=== PATIENT | female | born 1955 | race Caucasian/White ===

== ENCOUNTER 2025-03-29 10:39 | Emergency (ER) | payer MEDICARE, SELFPAY ==
--- OUTSIDE RECORDS SUMMARY | 2025-01-29 10:50 | XMS_ITS | Encounter Summary ---
Author Organization [facility] Address [address] [place] [address] Care Team Providers Care Child Health Associate Name Role Phone Bhupinder Guzmán SHELLFISH SORTER Primary Care Provider +1- [phone] Encounter Details Date Type Department Care Team (Late st Contact Info) Description 01/29/2025 11:50 AM EDT Ancillary Procedure [facility] [address] [place] [address] Social History Tobacco Use Types Packs/Day Years Used Date Smoking Tobacco: Never Passive Smoke Exposure: Never Smokeless Tobacco: Never Comments Unknown Sex and Gender Information Value Date Recorded Sex Assigned at Not on file Legal Sex Female 8:57 PM EDT Gender Identity Not on file Sexual Orientation Not on file documented as of this encounter Plan of Treatment Upcoming Encounters Date Type Department Care Team (Late st Contact Info) Description 04/02/2025 3:15 PM EST Office Visit [facility] [address] [place] [address] Bright Jones MD [address] [address] Glaucoma suspect of both eyes (Primary Dx); Retinopathy of prematurity of both eyes; Other secondary cataract of both eyes documented as of this encounter Procedures Procedure Name Priority Date/Time Associated Diagnosis Comments SAMUELS VISUAL FIELD - OU - BOTH EYES Routine 01/29/2025 2:45 PM EDT Glaucoma suspect of both eyes Retinopathy of prematurity of both eyes documented in this encounter Results * Samuels Visual Field - OU - Both Eyes (01/29/2025 2:45 PM EDT) Anatomical Region Laterality Modality Head Visual Field Narrative 01/29/2025 2:45 PM EDT OD - Inferior changes. 1.16 . OS - Abnormally high sensitivity OS>OD us Bright Jones MD OPHTH VISUAL FIELD Final Res ult documented in this encounter Visit Diagnoses Not on filedocumented in this encounter Additional Health Concerns Assessment Noted Time A fall risk assessment has been complete d for the patient 04/02/2024 7:51 AM EST A Body Mass Index follow-up plan has been documented for the patient 01/29/2025 3:02 PM EDT documented as of this encounter Care Teams Child Health Associate Relationship Specialty Start Date End Date Bhupinder Guzmán APRN [address] [place] [address] PCP - General 03/18/23 documented as of this encounter
--- OUTSIDE RECORDS SUMMARY | 2025-01-29 12:30 | XMS_ITS | Encounter Summary ---
Author Organization [facility] Address [address] [place] [address] Care Team Providers Care Insurance Counsel Name Role Phone Bhupinder Guzmán HELEN Primary Care Provider +1- [phone] Reason for Referral * Imaging (Routine) - Pending Review Specialty Diagnoses / Procedures Referred By Mc overton Referred To Contact Ophthalmology Diagnoses Glaucoma suspect of both eyes Procedures Laser Trabeculoplasty Selective - OD - Right Eye Bright Jones MD [address] [address] Phone: tel: fax: Referral ID Status Reason Start Date Expiration Date V isits Requested Visits Authorized [id number] Pending Review 01/29/2025 07/31/2026 1 1 Encounter Details Date Type Department Care Team (Late st Contact Info) Description 01/29/2025 1:30 PM EDT Office Visit [facility] [address] [place] [address] Bright Jones MD [address] [address] Glaucoma suspect of both eyes (Primary Dx); Retinopathy of prematurity of both eyes Social History Tobacco Use Types Packs/Day Years Used Date Smoking Tobacco: Never Passive Smoke Exposure: Never Smokeless Tobacco: Never Tobacco Cessation:Counseling Given: Not Answered Comments Unknown Sex and Gender Information Value Date Recorded Sex Assigned at Not on file Legal Sex Female 8:57 PM EDT Gender Identity Not on file Sexual Orientation Not on file documented as of this encounter Miscellaneous Notes * Progress Notes - Bright Jones MD - 01/29/2025 1:30 PM EDT 1) 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 MD 1.16 . OS - Abnormally high sensitivity OS>OD. MD 11.63 - ORA 8.8/7.0 - IOP last visit 20 on Lprost and cosopt OU. Today on same today. No recent steroids. - Will do SLT OD today while she is here. Drove so will avoid bilateral SLTs today. 2) PCIOL BE: PCO RE - YCL RE 04/2024 3) ROP: born 2 lbs in 195! 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 RTC 2 weeks for SLT OS. Ultimately wants to follow in [place] Tobacco Use: Low Risk (04/02/2024) Patient History Smoking Tobacco Use: Never Smokeless Tobacco Use: Never Passive Exposure: Not on file Recent Concern: Tobacco Use - Medium Risk (02/15/2024) Received from [facility] Patient History Smoking Tobacco Use: Former Smokeless Tobacco Use: Never Passive Exposure: Current The patient has been counseled on tobacco cessation: Not Applicable documented in this encounter Plan of Treatment Upcoming Encounters Date Type Department Care Team (Late st Contact Info) Description 04/02/2025 3:15 PM EST Office Visit [facility] [address] [place] [address] Bright Jones MD [address] [address] Glaucoma suspect of both eyes (Primary Dx); Retinopathy of prematurity of both eyes; Other secondary cataract of both eyes documented as of this encounter Procedures Procedure Name Priority Date/Time Associated Diagnosis Comments LASER TRABECULOPLASTY SELECTIVE - OD - RIGHT EYE Routine 01/29/2025 3:02 PM EDT Glaucoma suspect of both eyes SAMUELS VISUAL FIELD - OU - BOTH EYES Routine 01/29/2025 2:45 PM EDT Glaucoma suspect of both eyes Retinopathy of prematurity of both eyes documented in this encounter Results * Laser Trabeculoplasty Selective - OD - Right Eye (01/29/2025 3:02 PM EDT) Anatomical Region Laterality Modality Head Laser Room Narrative 01/29/2025 3:02 PM EDT Time Out Confirmed correct patient, procedure, site, and patient consented. Anesthesia Topical anesthesia was used. Anesthesia medications included Alphagan 0.15%, Proparacaine. Laser Information Laser power was 1.1. Total spots was 115. Post-op The patient tolerated the procedure well. There were no complications. The patient received written and verbal post procedure care education. us Bright Jones MD OPH CLINIC PROCEDURES Shanna l Result * Samuels Visual Field - OU - Both Eyes (01/29/2025 2:45 PM EDT) Anatomical Region Laterality Modality Head Visual Field Narrative 01/29/2025 2:45 PM EDT OD - Inferior changes. 1.16 . 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
--- OUTSIDE RECORDS SUMMARY | 2025-02-12 14:00 | XMS_ITS | Encounter Summary ---
Author Organization [facility] Address [address] 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 MD 1.16 . OS - Abnormally high sensitivity OS>OD. MD 11.63 - ORA 8.8/7.0 - IOP last visit on Lprost and cosopt OU. Also using PF QID and IOP 38/22 today. Taper PF 3-2-1 over next week and add brimonidine OD in the meantime. - SLT OD 01/24 - SLT OS in future if not persistent IOP spike. 2) PCIOL BE: PCO RE - YCL RE 04/2024 3) ROP: born 2 lbs in 1953! 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 more stressed 01/2025 - Broke tooth on almond RTC next week IOP check Tobacco Use: Low Risk (01/29/2025) Patient History Smoking Tobacco Use: Never Smokeless Tobacco Use: Never Passive Exposure: Never The patient has been counseled on tobacco cessation: Not Applicable I saw and evaluated the patient with the resident/fellow. I discussed the case with the resident/fellow and agree with the findings and plan as documented. Bright Jones MD documented in this encounter Plan of Treatment Upcoming Encounters Date Type Department Care Team (Late st Contact Info) Description 04/02/2025 3:15 PM EST Office Visit [facility] [address] [place] [address] Bright Jones MD [address] [phone] Glaucoma suspect of both eyes (Primary Dx); Retinopathy of prematurity of both eyes; Other secondary cataract of both eyes documented as of this encounter Visit Diagnoses Diagnosis Glaucoma suspect of both eyes- Primary Unspecified preglaucoma Retinopathy of prematurity of both eyes Glaucoma suspect of both eyes- Primary Unspecified preglaucoma 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
--- OUTSIDE RECORDS SUMMARY | 2025-02-21 07:00 | XMS_ITS | Encounter Summary ---
Author Organization [facility] Address [address] [place] [address] Care Team Providers Care Scallop Cutter Name Role Phone Bhupinder Guzmán HELEN Primary Care Provider +1- [phone] Reason for Referral * Imaging (Routine) - Pending Review Specialty Diagnoses / Procedures Referred By Mc overton Referred To Contact Ophthalmology Diagnoses Retinopathy of prematurity of both eyes Glaucoma suspect of both eyes Procedures Laser Trabeculoplasty Selective - OS - Left Eye Bright Jones MD [address] [address] Phone: tel: fax: Referral ID Status Reason Start Date Expiration Date V isits Requested Visits Authorized [id number] Pending Review 02/21/2025 08/23/2026 1 1 Encounter Details Date Type Department Care Team (Late st Contact Info) Description 02/21/2025 8:00 AM EDT Office Visit [facility] [address] [place] [address] Bright Jones MD [address] [address] Retinopathy of prematurity of both eyes (Primary Dx); Glaucoma suspect of both eyes Social History Tobacco Use [...] Progress Notes - Bright Jones MD - 02/21/2025 8:00 AM EDT 1) 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 MD 1.16 . OS - Abnormally high sensitivity OS>OD. MD 11.63 - ORA 8.8/7.0 - IOP last visit still using PF after SLT OD. Tapered PF 3-2-1. IOP today on Lprost andcosopt OU, brimonidine BID OD. on Lprost and cosopt OU. - SLT OD 01/24 - Will do SLT OS today. Stop brimonidine for now. Close follow up to ensure no IOP spike 2) PCIOL BE: PCO RE - YCL RE 04/2024 3) ROP: born 2 lbs in 1955! 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 01/2025 - Broke tooth on almond 02/23 RTC 2 weeks IOP check Tobacco Use: Low Risk (02/21/2025) Patient History Smoking Tobacco Use: Never Smokeless [...] Description 04/02/2025 3:15 PM EST Office Visit [facility] [address] [place] [address] Bright Jones MD [address] [place] [phone] Glaucoma suspect of both eyes (Primary Dx); Retinopathy of prematurity of both eyes; Other secondary cataract of both eyes documented as of this encounter Procedures Procedure Name Priority Date/Time Associated Diagnosis Comments LASER TRABECULOPLASTY SELECTIVE - OS - LEFT EYE Routine 02/21/2025 8:47 AM EDT Retinopathy of prematurity of both eyes Glaucoma suspect of both eyes documented in this encounter Results * Laser Trabeculoplasty Selective - OS - Left Eye (02/21/2025 8:47 AM EDT) Anatomical Region Laterality Modality Head Laser Room Narrative 02/21/2025 8:47 AM EDT Time Out Confirmed correct patient, procedure, site, and patient consented. Anesthesia Topical anesthesia was used. Anesthesia medications included Alphagan 0.15%, Proparacaine. Laser Information Laser power was 0.9. Total spots was 100. Post-op The patient tolerated the procedure well. There were no complications. The patient received written and verbal post procedure care education. 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
--- OUTSIDE RECORDS SUMMARY | 2025-03-14 15:00 | XMS_ITS | Encounter Summary ---
Author Organization [facility] Address [address] [place] [address] Care Team Providers Care Fibreglass Gun Hand Name Role Phone Bhupinder Guzmán APRN Primary Care Provider +1- [phone] Encounter Details Date Type Department Care Team (Late st Contact Info) Description 03/14/2025 3:00 PM EST Office Visit [facility] [address] [place] [address] Bright Jones MD [address] [address] Retinopathy of prematurity of both eyes (Primary Dx); Glaucoma suspect of both eyes; Other secondary cataract of both eyes Social History Tobacco Use [...] Progress Notes - Bright Jones MD - 03/14/2025 3:00 PM EST 1) 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 MD 1.16 . OS - Abnormally high sensitivity OS>OD. MD 11.63 - ORA 8.8/7.0 - SLT OD 01/24 with IOP spike but stayed on steroid - SLT OS 02/23 - IOP today 18 on Lprost and cosopt OU. Will restart brimonidine OS for now. Hopefully similar course to OD where we get response in a few weeks. 2) PCIOL BE: PCO RE - YCL RE 04/2024 3) ROP: born 2 lbs in 1955! 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 more stressed 01/2025 - Broke tooth on almond 02/23 - Things much better at work 03/2025 RTC 3 weeks IOP check Tobacco Use: Low Risk [...] Description 04/02/2025 3:15 PM EST Office Visit [facility] [address] [place] [address] Bright Jones MD [address] [phone] Glaucoma suspect of both eyes (Primary Dx); Retinopathy of prematurity of both eyes; Other secondary cataract of both eyes documented as of this encounter Visit Diagnoses Diagnosis Retinopathy of prematurity of both eyes- Primary Glaucoma suspect of both eyes Unspecified preglaucoma Other secondary cataract of both eyes Glaucoma suspect of both eyes- Primary Unspecified preglaucoma 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
[2025-03-29 10:46] VITALS: BP 185/80; PULSE 76; RESP 18; TEMP 36.9; O2SAT 99; BMI 24.3
--- OUTSIDE RECORDS SUMMARY | 2025-03-29 10:56 | XMS_ITS | Clinical Summary ---
Author Organization [facility] Address [address] [place] [address] Care Team Providers Care Seed Tester Name Role Phone Bhupinder Guzmán HELEN Primary Care Provider [phone]- [phone] Allergies No known active allergies Medications aspirin 325 MG tablet Take 1 tablet (325 mg) by mouth 1 (one) time each day. Active atenolol (Tenormin) 100 MG tablet Take 1 tablet (100 mg) by mouth 1 (one) time each day. Active cyclobenzaprine (Flexeril) 5 MG tablet Take 1 tablet (5 mg) by mouth 1 (one) time each day. Active OneTouch Ultra test strip 2 Active Lancets (OneTouch Delica Plus [id number]) misc 2 Active losartan-hydroC HLOROthiazide (Hyzaar) 100-25 MG tablet Take 1 tablet by mouth 1 (one) time each day. Active metFORMIN (Glucophage) 500 MG tablet 2 Active naproxen sodium (Anaprox) 550 MG tablet Take 1 tablet by mouth every 12 (twelve) hours. 1 Active omeprazole (PriLOSEC) [address] capsule Take 1 capsule (20 mg) by mouth 1 (one) time each day. Active Mounjaro 5 MG/0.5ML solution auto-injector solution pen-injector Inject 5 mg every week by subcutaneous route. Active losartan (Cozaar) 100 MG tablet 100 mg by oral route. Active atorvastatin (Lipitor) 40 MG tablet 40 mg by oral route. 4 Active traMADol (Ultram) 50 MG tablet 50 mg by oral route. 4 Active latanoprost (Xalatan) 0.005 % ophthalmic solution INSTILL 1 DROP INTO BOTH EYES ONCE NIGHTLY 2.5 mL 11 4 Active dorzolamide-zane olol (Cosopt) 2-0.5 % ophthalmic solution INSTILL 1 DROP INTO THE AFFECTED EYE(S) EVERY 12 HOURS 10 mL 11 5 Active Additional Information Patient not taking.Reported on 03/14/2025 clopidogrel (Plavix) 75 MG tablet 5 Active nitroglycerin (Nitrostat) 0.4 MG SL tablet every 5 minutes as needed. 4 Active atenolol (Tenormin) 50 MG tablet Take 1 tablet by mouth daily. 5 Active Mounjaro 7.5 MG/0.5ML solution auto-injector solution pen-injector Inject 0.5 mL under the skin 1 time per week. 5 Active prednisoLONE acetate (Pred-Forte) 1 % ophthalmic suspension Administer 1 drop into the right eye 4 times a day. 15 mL 5 Active Additional Information Patient not taking.Reported on 03/14/2025 brimonidine 0.2 % OP ophthalmic solution Administer 1 drop into the right eye 2 times a day. 15 mL 3 5 Active Active Problems Problem Noted Date Diagnosed Date Glaucoma suspect of both eyes 01/29/2025 Retinopathy of prematurity of both eyes 01/23/20 25 Secondary cataract of both eyes 09/07/2021 Resolved Problems Problem Noted Date Diagnosed Date Resolved Date Suspected glaucoma of both eyes 09/07/2021 01/20/2025 Encounters Date Type Department Care Team Description 03/14/2025 3:00 PM EST Office Visit [facility] [address] [place] [address] Bright Jones MD Retinopathy of prematurity of both eyes (Primary Dx); Glaucoma suspect of both eyes; Other secondary cataract of both eyes 03/14/2025 Travel 02/21/2025 8:00 AM EDT Office Visit [facility] [address] [place] [address] Bright Jones MD Retinopathy of prematurity of both eyes (Primary Dx); Glaucoma suspect of both eyes 02/21/2025 Travel 02/12/2025 3:00 PM EDT Office Visit [facility] [address] [place] [address] Bright Jones MD Glaucoma suspect of both eyes (Primary Dx); Retinopathy of prematurity of both eyes 02/12/2025 Travel 01/29/2025 1:30 PM EDT Office Visit [facility] [address] [place] [address] Bright Jones MD Glaucoma suspect of both eyes (Primary Dx); Retinopathy of prematurity of both eyes 01/29/2025 11:50 AM EDT Ancillary Procedure [facility] [address] [place] [address] 01/29/2025 Travel 01/11/2025 Telephone [facility] [address] [place] [address] Jhon Ross MD from Last 3 Months Family History Medical History Relation Name Comments Cancer Brother Diabetes Brother Heart disease Brother Heart disease Father Diabetes Mother Heart disease Mother Heart disease Sister Relation Name Status Comments Brother Father Mother Sister Social History Tobacco Use Types Packs/Day Years Used Date Smoking Tobacco: Never Passive Smoke Exposure: Never Smokeless Tobacco: Never Tobacco Cessation:Counseling Given: Not Answered Comments Unknown Sex and Gender Information Value Date Recorded Sex Assigned at Not on file Legal Sex Female 8:57 PM EDT Gender Identity Not on file Sexual Orientation Not on file Plan of Treatment Upcoming Encounters Date Type Department Care Team (Late st Contact Info) Description 04/02/2025 3:15 PM EST Office Visit [facility] [address] [place] [address] Bright Jones MD [address] [address] Glaucoma suspect of both eyes (Primary Dx); Retinopathy of prematurity of both eyes; Other secondary cataract of both eyes Health Maintenance Due Date Last Done Comments [facility]-Bone Density Scan 1955 [facility]-Depression Screening 1955 [facility]-Hepatitis C Screening 1955 [facility]-Medicare Annual Wellness (AWV) 1955 [facility]-Infant/Child/Adol SDOH Screenings 1955 Diabetes: Dental Exam 09/04/1963 [facility]- SDOH Screenings 09/04/1971 [facility]-Adult SDOH Screenings 09/04/1971 CT Colonography 1998 Colonoscopy 1998 FIT-DNA 1998 FIT 1998 FOBT 1998 Sigmoidoscopy 1998 [facility]-Colorectal Cancer Screening 1998 [facility]-Breast Cancer Screening 09/04/2003 [facility]-Zoster Vaccines (2 of 2) 01/18/2020 11/23/2019 [facility]-Diabetes: Hemoglobin A1C 06/16/2021 12/17/2020 [id number] Vaccine (1 - 2024- season) 2024 [facility]-Influenza Vaccine (#1) 12/31/202402/11, 01/26/2022, 05/27/2021, Additional history exists [facility]-DTaP,Tdap,and Td Vaccines (2 - Td or Tdap) 03/19/2026 03/19/2016 [facility]-RSV Vaccine: 60+ Years or (1 - 1-dose 75+ series) 2028 [facility]-Pneumococcal Vaccine: 50+ Years Completed 02/15/2020, 01/25/2019 HPV Vaccines Aged Out No longer eligi ble based on patient's age to complete this topic [facility]-HIB Vaccines Aged Out No longer e ligible based on patient's age to complete this topic [facility]-Hepatitis A Vaccines Aged Out No longer eligible based on patient's age to complete this topic [facility]-IPV Vaccines Aged Out No longer e ligible based on patient's age to complete this topic [facility]-Rotavirus Vaccines Aged Out No lo nger eligible based on patient's age to complete this topic Procedures Procedure Name Priority Date/Time Associated Diagnosis Comments LASER TRABECULOPLASTY SELECTIVE - OS - LEFT EYE Routine 02/21/2025 8:47 AM EDT Retinopathy of prematurity of both eyes Glaucoma suspect of both eyes LASER TRABECULOPLASTY SELECTIVE - OD - RIGHT EYE Routine 01/29/2025 3:02 PM EDT Glaucoma suspect of both eyes SAMUELS VISUAL FIELD - OU - BOTH EYES Routine 01/29/2025 2:45 PM EDT Glaucoma suspect of both eyes Retinopathy of prematurity of both eyes from Last 3 Months Results * Laser Trabeculoplasty Selective - OS [...] procedure care education. us Bright Jones MD [facility] PROCEDURES Shanna l Result * Laser Trabeculoplasty Selective - OD - [...] 2:45 PM EDT OD - Inferior changes. MD 1.16 . OS - Abnormally high sensitivity OS>OD us Bright oJnes MD OPHTH VISUAL FIELD Final Res ult from Last 3 Months Insurance [employer]ARE Care Teams Seed Tester Relationship Specialty Start Date End Date Bhupinder Guzmán APRN [address] [place] [id number] PCP - General 03/18/23
--- OUTSIDE RECORDS SUMMARY | 2025-03-29 10:56 | XMS_ITS | Encounter Summary ---
Author Organization [facility] Address [address] [place] [address] Care Team Providers Care Fur Finisher Tailor Name Role Phone Bhupinder Guzmán HELEN Primary Care Provider [phone]- [phone] Encounter Details Date Type Department Care Team (Late st Contact Info) Description 01/11/2025 Telephone [facility] [address] [place] [address] Jhon Ross MD [address] [address] Social History Tobacco Use Types Packs/Day Years Used Date Smoking Tobacco: Never Smokeless Tobacco: Never Comments Unknown Sex and Gender Information Value Date Recorded Sex Assigned at Not on file Legal Sex Female 8:57 PM EDT Gender Identity Not on file Sexual Orientation Not on file documented as of this encounter Miscellaneous Notes * Telephone Encounter - Estephania Preciado - 01/11/2025 9:13 AM EDT Clinical Concern/Question Reason for Call: Patient is asking about scheduling a 6 mo follow up glaucoma check here in the [place] office Best contact number: [phone] Optimal time of day to reach caller: ANYTIME Additional comments/information from caller: Asking for a Tuesday around 3 in March Note: Please do not reply to this message. Follow-up communication and further actions as a result of this message need to be communicated with the patient directly, if the patient is not active onMyChart. If the patient is active on MyChart, they will receive notification of the communication/outcome via Ifbyphone. documented in this encounter Plan of Treatment Upcoming Encounters Date Type Department Care Team (Late st Contact Info) Description 04/02/2025 3:15 PM EST Office Visit [facility] [address] [facility] [place] [address] Bright Jones MD 110 [facility] [address] [place] [address] Glaucoma suspect of both eyes (Primary Dx); Retinopathy of prematurity of both eyes; Other secondary cataract of both eyes documented as of this encounter Visit Diagnoses Not on filedocumented in this encounter Additional Health Concerns Assessment Noted Time A fall risk assessment has been complete d for the patient 04/02/2024 7:51 AM EST A Body Mass Index follow-up plan has been documented for the patient 04/02/2024 8:12 AM EST documented as of this encounter Care Teams Fur Finisher Tailor Relationship Specialty Start Date End Date Bhupinder Guzmán APRN [address] [place] [address] PCP - General 03/18/23 documented as of this encounter
--- OUTSIDE RECORDS SUMMARY | 2025-03-29 10:56 | XMS_ITS | Continuity of Care Document ---
Author Organization [facility] Address [address] [place] [address] Care Team Providers Care Meat Products Demonstrator Name Role Phone VALARIE TOLEDO Referring Provider [phone] BHUPINDER PEREA Primary Care Provider Assessment No assessment recorded. Plan of Treatment Reminders Order Date Submit Date Provider Last Modified By Organization Details Last Modified Time Details Appointments None recorded. Lab vitamin D, 25-hydrox y, total, serum 025 025 JAE [facility], [address], Michael F, [place], [address], 5 12:09:46 HbA1c (hemoglob in A1c), blood 025 025 JAE [facility], [address], [place] [address], [place], [address], 5 12:09:46 microalbu min/creat inine, mass ratio, urine 025 025 JAE [facility], [address], [place] [address], [place], [address], 5 12:09:46 TSH + free T4, serum 025 025 JAE [facility], [address], [place] [address], [place], [address], 5 12:09:43 CMP, serum or plasma JAE [facility], [address], [place] [address], [place], [address], 5 12:09:44 lipid panel, serum JAE [facility], [address], [place], [place], [address], 5 12:09:45 CBC w/ auto diff JAE [facility], [address], [place], [place], [address], 5 12:09:44 Referral None recorded. Procedures None recorded. Surgeries None recorded. Imaging None recorded. Medication Orders None recorded. Patient TargetsNo targets recorded. Patient Instructions Encounter Date Encounter Id Patient Instructions Last Modified By Organization Details Last Modified Time 01/10/2025 [id number] body mass index: care instructions efryman Not available 01/10/2025 08:37:22 Reason for Referral None Reported. Results Created Date Observation Date Name Description Value Unit Range Abnormal Flag Note LastModifiedBy Organization Detail LastModifiedTime 01/11/2001/11/2025 TSH+F REE T4 TSH 4.600 uIU/m L 0.450- 4.500 above high normal Not Available [facility] ([facility]) [address] [place], [address], 01/11/2025 12:09:43 01/11/2001/11/2025 TSH+F REE T4 T4,free(dire ct) 1.20 NG/dL 0.82-1 .77 normal Not Available [facility] ([facility]) [address] [place], [address], 01/11/2025 12:09:43 01/11/2001/11/2025 CBC WITH DIFFE RENTI AL/PL ATELE T WBC 5.8 x10e3 /uL 3.4-10 .8 normal Not Available [facility] ([facility]) [address] [facility] [place], [address], 01/11/2025 12:09:44 01/11/2001/11/2025 CBC WITH DIFFE RENTI AL/PL ATELE T RBC 4.50 x10e6 /uL 3.77-5 .28 normal Not Available [facility] ([facility]) [address] [facility], [place], [address], 01/11/2025 12:09:44 01/11/2001/11/2025 CBC WITH DIFFE RENTI AL/PL ATELE T hemoglobin 14.1 g/dL 11.1-1 5.9 normal Not Available [facility] ([facility]) [address] [facility], [place], [address], 01/11/2025 12:09:44 01/11/2001/11/2025 CBC WITH DIFFE RENTI AL/PL ATELE T hematocrit 43.7 % 34.0-4 6.6 normal Not Available [facility] ([facility]) [address] [facility], [place], [address], 01/11/2025 12:09:44 01/11/2001/11/2025 CBC WITH DIFFE RENTI AL/PL ATELE T MCV 97 fL 79-97 normal Not Available [facility] ([facility]) [address] [facility], [place], [address], 01/11/2025 12:09:44 01/11/2001/11/2025 CBC WITH DIFFE RENTI AL/PL ATELE T MCH 31.3 pg 26.6-3 3.0 normal Not Available [facility] ([facility]) [address] [facility], [place], [address], 01/11/2025 12:09:44 01/11/20 25 01/11/2025 CBC WITH DIFFE RENTI AL/PL ATELE T MCHC 32.3 g/dL 31.5-3 5.7 normal Not Available [facility] ([facility]) [address] [facility], [place], [address], 01/11/2025 12:09:44 01/11/2001/11/2025 CBC WITH DIFFE RENTI AL/PL ATELE T RDW 12.4 % 11.7-1 5.4 Not Available [facility] ([facility]) [address] [facility], [place], [address], 01/11/2025 12:09:44 01/11/20 25 01/11/2025 CBC WITH DIFFE RENTI AL/PL ATELE T platelets 205 x10e3 /uL 150-45 0 normal Not Available [facility] ([facility]) [address] [facility], [place], [address], 01/11/2025 12:09:44 01/11/20 25 01/11/2025 CBC WITH DIFFE RENTI AL/PL ATELE T neutrophils 53 % not estab. normal Not Available [facility] ([facility]) [address] [facility], [place], [address], 01/11/2025 12:09:44 01/11/20 25 01/11/2025 CBC WITH DIFFE RENTI AL/PL ATELE T lymphs 33 % not estab. normal Not Available [facility] ([facility]) [address] [facility], [place], [address], 01/11/2025 12:09:44 01/11/20 25 01/11/2025 CBC WITH DIFFE RENTI AL/PL ATELE T monocytes 9 % not estab. normal Not Available [facility] ([facility]) [address] [facility], [place], [address], 01/11/2025 12:09:44 01/11/20 25 01/11/2025 CBC WITH DIFFE RENTI AL/PL ATELE T eos 4 % not estab. normal Not Available [facility] ([facility]) [address] [facility], [place], [address], 01/11/2025 12:09:44 01/11/20 25 01/11/2025 CBC WITH DIFFE RENTI AL/PL ATELE T basos 1 % not estab. normal Not Available [facility] ([facility]) [address] [place], [address], 01/11/2025 12:09:44 01/11/20 25 01/11/2025 CBC WITH DIFFE RENTI AL/PL ATELE T immature cells CLOTH HAULER Not Available [facility] ([facility]) [address] [place], [address], 01/11/2025 12:09:44 01/11/2001/11/2025 CBC WITH DIFFE RENTI AL/PL ATELE T neutrophils (absolute) 3.1 x10e3 /uL 1.4-7. 0 normal Not Available [facility] ([facility]) [address] [place], [address], 01/11/2025 12:09:44 01/11/20 25 01/11/2025 CBC WITH DIFFE RENTI AL/PL ATELE T lymphs (absolute) 1.9 x10e3 /uL 0.7-3. 1 normal Not Available [facility] ([facility]) [address] [place], [address], 01/11/2025 12:09:44 01/11/20 25 01/11/2025 CBC WITH DIFFE RENTI AL/PL ATELE T monocytes(ab solute) 0.5 x10e3 /uL 0.1-0. 9 normal Not Available [facility] ([facility]) [address] [place], [address], 01/11/2025 12:09:44 01/11/20 25 01/11/2025 CBC WITH DIFFE RENTI AL/PL ATELE T eos (absolute) 0.2 x10e3 /uL 0.0-0. 4 normal Not Available [facility] ([facility]) [address] [place], [address], 01/11/2025 12:09:44 01/11/20 25 01/11/2025 CBC WITH DIFFE RENTI AL/PL ATELE T baso (absolute) 0.1 x10e3 /uL 0.0-0. 2 normal Not Available [facility] ([facility]) [address] [facility], [place], [address], 01/11/2025 12:09:44 01/11/20 25 01/11/2025 CBC WITH DIFFE RENTI AL/PL ATELE T immature granulocytes 0 % not estab. Not Available [facility] ([facility]) [address] [facility], [place], [address], 01/11/2025 12:09:44 01/11/20 25 01/11/2025 CBC WITH DIFFE RENTI AL/PL ATELE T immature grans (abs) 0.0 x10e3 /uL 0.0-0. 1 Not Available [facility] ([facility]) [address] [facility], [place], [address], 01/11/2025 12:09:44 01/11/20 25 01/11/2025 CBC WITH DIFFE RENTI AL/PL ATELE T NRBC CLOTH HAULER Not Available [facility] ([facility]) [address] [facility], [place], [address], 01/11/2025 12:09:44 01/11/20 25 01/11/2025 CBC WITH DIFFE RENTI AL/PL ATELE T hematology comments: CLOTH HAULER Not Available [facility] ([facility]) [address] [facility], [place], [address], 01/11/2025 12:09:44 01/11/20 25 01/11/2025 COMP. METAB OLIC PANEL (14) glucose 91 mg/dL 70-99 normal Not Available [facility] ([facility]) [address] [facility], [place], [address], 01/11/2025 12:09:44 01/11/20 25 01/11/2025 COMP. METAB OLIC PANEL (14) BUN 22 mg/dL 8-27 normal Not Available [facility] ([facility]) [address] [facility] [place], [address], 01/11/2025 12:09:44 01/11/20 25 01/11/2025 COMP. METAB OLIC PANEL (14) creatinine 0.87 mg/dL 0.57-1 .00 normal Not Available [facility] ([facility]) [address], [place], [address], 01/11/2025 12:09:44 01/11/20 25 01/11/2025 COMP. METAB OLIC PANEL (14) eGFR 71 mL/mi n/1.7 3 >59 normal Not Available [facility] ([facility]) [address] [place], [address], 01/11/2025 12:09:44 01/11/20 25 01/11/2025 COMP. METAB OLIC PANEL (14) BUN/creatini ne ratio 25 12-28 normal Not Available [facility] ([facility]) [address] [facility], [place], [address], 01/11/2025 12:09:44 01/11/20 25 01/11/2025 COMP. METAB OLIC PANEL (14) sodium 140 mmol/ L 134-14 4 normal Not Available [facility] ([facility]) [address] [place], [address], 01/11/2025 12:09:44 01/11/20 25 01/11/2025 COMP. METAB OLIC PANEL (14) potassium 3.9 mmol/ L 3.5-5. 2 normal Not Available [facility] ([facility]) [address] [facility], [place], [address], 01/11/2025 12:09:44 01/11/20 25 01/11/2025 COMP. METAB OLIC PANEL (14) chloride 104 mmol/ L 96-106 normal Not Available [facility] ([facility]) [address] [place], [address], 01/11/2025 12:09:44 01/11/20 25 01/11/2025 COMP. METAB OLIC PANEL (14) carbon dioxide, total 22 mmol/ L 20-29 normal Not Available [facility] ([facility]) [address] [place], [address], 01/11/2025 12:09:44 01/11/20 25 01/11/2025 COMP. METAB OLIC PANEL (14) calcium 10.0 mg/dL 8.7-10 .3 normal Not Available [facility] ([facility]) [address] [place], [address], 01/11/2025 12:09:44 01/11/20 25 01/11/2025 COMP. METAB OLIC PANEL (14) protein, total 6.5 g/dL 6.0-8. 5 normal Not Available [facility] ([facility]) [address] [place], [address], 01/11/2025 12:09:44 01/11/20 25 01/11/2025 COMP. METAB OLIC PANEL (14) albumin 4.2 g/dL 3.8-4. 8 normal Not Available [facility] ([facility]) [address] [place], [address], 01/11/2025 12:09:44 01/11/20 25 01/11/2025 COMP. METAB OLIC PANEL (14) globulin, total 2.3 g/dL 1.5-4. 5 Not Available [facility] ([facility]) [address] [place], [address], 01/11/2025 12:09:44 01/11/20 25 01/11/2025 COMP. METAB OLIC PANEL (14) bilirubin, total 0.5 mg/dL 0.0-1. 2 normal Not Available [facility] ([facility]) [address] [place], [address], 01/11/2025 12:09:44 01/11/20 25 01/11/2025 COMP. METAB OLIC PANEL (14) alkaline phosphatase 64 IU/L 44-121 normal Eff ectiv e Septe mber 2024 Alkal ine Phosp hatas e refer ence inter grady will be shin ing to: Age Male Femal e 0 - 5 days 47 - 127 47 - 127 6 - 10 days 29 - 242 29 - 242 11 - 20 days 109 - 357 109 - 357 21 - 30 days 94 - 494 94 - 494 1 - 2 month s 149 - 539 149 - 539 3 - 6 month s 131 - 452 131 - 452 7 - 11 month s 117 - 401 117 - 401 12 month s - 6 years 158 - 369 158 - 369 7 - 12 years 150 - 409 150 - 409 13 years 156 - 435 78 - 227 14 years 114 - 375 64 - 161 15 years 88 - 279 56 - 134 16 years 74 - 207 51 - 121 17 years 63 - 161 47 - 113 18 - 20 years 51 - 125 42 - 106 21 - 50 years 47 - 123 41 - 116 51 - 80 years 49 - 135 51 - 125 >80 years 48 - 129 48 - 129 Not Available [facility] ([facility]) [address] [place], [address], 01/11/2025 12:09:44 01/11/20 25 01/11/2025 COMP. METAB OLIC PANEL (14) AST (SGOT) 57 IU/L 0-40 above high normal Not Available [facility] ([facility]) [address] [place], [address], 01/11/2025 12:09:44 01/11/20 25 01/11/2025 COMP. METAB OLIC PANEL (14) ALT (SGPT) 60 IU/L 0-32 above high normal Not Available [facility] ([facility]) [address] [place], [address], 01/11/2025 12:09:44 01/11/20 25 01/11/2025 LIPID PANEL cholesterol, total 101 mg/dL 100-19 9 normal Not Available [facility] ([facility]) [address] [facility], [address], 01/11/2025 12:09:45 01/11/20 25 01/11/2025 LIPID PANEL triglyceride s 56 mg/dL 0-149 normal Not Available [facility] ([facility]) [address] [facility], [place], [address], 01/11/2025 12:09:45 01/11/20 25 01/11/2025 LIPID PANEL HDL cholesterol 47 mg/dL >39 normal Not Available [facility] ([facility]) [address] [facility], [place], [address], 01/11/2025 12:09:45 01/11/20 25 01/11/2025 LIPID PANEL VLDL cholesterol demetrius 13 mg/dL 5-40 Not Available [facility] ([facility]) [address] [facility], [place], [address], 01/11/2025 12:09:45 01/11/20 25 01/11/2025 LIPID PANEL LDL chol calc ([facility]) 41 mg/dL 0-99 Not Available [facility] ([facility]) [address] [place], [address], 01/11/2025 12:09:45 01/11/2001/11/2025 LIPID PANEL LDL calc comment: CLOTH HAULER Not Available [facility] ([facility]) [address] [facility] [place], [address], 01/11/2025 12:09:45 01/11/20 25 01/11/2025 ALBUM IN/CR EAT RATIO , RANDO M UR creatinine, urine 131.9 mg/dL not estab. normal Not Available [facility] ([facility]) [address] [place], [address], 01/11/2025 12:09:45 01/11/20 25 01/11/2025 ALBUM IN/CR EAT RATIO , RANDO M UR albumin, urine 167.4 ug/mL not estab. Not Available [facility] ([facility]) [address] [place], [address], 01/11/2025 12:09:45 01/11/20 25 01/11/2025 ALBUM IN/CR EAT RATIO , RANDO M UR alb/creat ratio 127 mg/g_ creat 0-29 above high normal Jo-Ann l: 0 - 29 Moder ately incre ased: 30 - 300 Sever pam incre ased: >300 Not Available [facility] ([facility]) [address] [facility], [place], [address], 01/11/2025 12:09:45 01/11/2001/11/2025 HEMOG LOBIN A1C hemoglobin A1C 5.5 % 4.8-5. 6 normal Predi abete s: 5.7 - 6.4 Diabe margi: >6.4 Glyce cassie contr ol for adult s with diabe margi: <7.0 Not Available [facility] ([facility]) [address] [facility], [place], [address], 01/11/2025 12:09:46 01/11/2001/11/2025 VITAM IN D, 25-HY DROXY vitamin D, 25-hydroxy 49.2 NG/mL 30.0-1 00.0 Vitam in D defic iency has been defin ed by the Insti tute of Medic ine and an Endoc rine Socie ty pract ice guide line as a level of serum 25-OH vitam in D less than 20 ng/mL (1,2) . The Endoc rine Socie ty went on to furth er defin e vitam in D insuf ficie ncy as a level betwe en 21 and 29 ng/mL (2). 1. IOM (Inst itute of Medic ine). 2010. Dieta ry refer ence intak es for calci um and D. Washi ngton [place]: The [facility] Press . 2. Dara tony MF, Tay aponte [place], Andrew off-F madelynar i LUDWIG, et al. Evalu ation , treat ment, and preve ntion of vitam in D defic iency : an Endoc rine Socie ty clini demetrius pract ice guide line. JCEM. 2010; 96(7) :1911 -30. Not Available [facility] ([facility]) [address], [place], [address], 01/11/2025 12:09:46 02/28/2002/27/2025 - scn dig breas t tomos yn ana [facility] Name: [facility] Med[facility] l [facility] Phys: Francisco J saini NP, [place] [address] : 1955 Age: 69 Sex: F Acct: [id number] Loc: G.MAMM PHONE #: [phone] Exam Date: 2024 Status : REG CLI FAX #: [phone] Rad# [id number] Unit# [id number] Admit Date: 2024 EXAMS: CPT CODE: [id number] SCN DIG BREAST TOMOSY N ANA 48716 Exam: 3-D screen ing mammog chanel includ ing tomosy nthesi s and CAD (Compu ter Assist ed Detect ion). Clinic al indica tion: Asympt omatic screen ing exam Compar nico: Exams to 2021 TECHNI QUE: Routin e bilate ral 2D screen ing mammog mili with CC and MLO views obtain ed. 3-D tomosy nthesi s and Comput er assist ed detect ion were utiliz ed for this exam. BREAST DENSIT Y: The breast s are hetero geneou sly dense, which may obscur e small masses FINDIN GS: No suspic ious mass, elke ectura l distor tion, or suspic ious calcif icatio ns are presen t. IMPRES JE: No eviden ce of malign chari in either breast Recomm endati on: Annual screen ing mammog chanel recomm ended in one year The result s of this report will be commun icated to the patien t by letter in layman 's terms. ACR BI-RAD S: BI-RAD S assess ment catego ry 1: Negati ve mammog mili Mammog chanel does not detect approx imatel y 10-15% of breast cancer s. A normal mammog mili does not exclud e breast cancer in a patien t with palpab le mass or abnorm al findin gs on physic al examin ation. These patien ts may need biopsi es and when clinic ally indica candace a biopsy should not be postpo katerine becaus e of a normal mammog mili. If the patien t has breast surger y or biopsy , FDA/ [place] Regula tory Guidel javier mandat e that this facili ty receiv e pathol ogic result s for follow -up correl ation. Electr onical ly signed by: Denisha Patel MD 2024 04:07 PM EDT RP Workst ation: [id number] PAGE 1 Signed Report (GIOVANA NUED) [facility] Name: [facility] Phys: Francisco J saini CLOTH HAULER, [place] [address] : 1955 Age: 69 Sex: F Acct: [id number] Loc: G.MAMM PHONE #: [phone] Exam Date: 2024 Status : REG CLI FAX #: Rad# [id number] Unit# [id number] Admit Date: 2024 EXAMS: CPT CODE: [id number] SCN DIG BREAST TOMOSY N ANA 61995 Electr onical ly Signed by DENISHA PATEL MD on 2024 at 1606 Report ed and signed by: KYMBERLY PATEL MD CC: Sole Perea APRN; [place] saini Dictat ed Date/T jasmyn: 2024 (1606) Techno logist : RAMA DIEHL (RT)(R ) Transc ribed Date/T jasmyn: 2024 (1606) Transc riptio nist: DR.HEN NI Null onic Signat ure Date/T jasmyn: 2024 (1606) Printe d Date/T jasmyn: 2024 (1609) BATCH NO: N/A PAGE 2 Signed Report CC'ed Logic: Orderi ng Provid er: FRANCISCO J Cancino Attend ing Provid er: FRANCISCO J Cancino Referr ing Provid er: FRANCISCO J Cancino Consul ting Provid er: BRIT Cancino [address] [place], [address], 02/27/2025 19:14:15 Result Notes None recorded. 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 Jillian Stears null, [place] - [facility] 4 16:46:20 History of cardiac catheter ization 12501318828 100 Active Jillian Stears null, [place] - [facility] 4 16:46:20 Postmeno pausal bleeding 30463913 Active Jillian Stears null, [place] - [facility] 4 16:46:20 Diabetes mellitus 07318934 Active 2015 Bhupinder Perea APRN [address], [place], [address] , [place] - [facility] 2 17:29:10 Hypercho lesterol emia 41296514 Active 2015 Bhupinder Perea APRN [address], [place], [address] , [place] - [facility] 2 17:29:13 Body mass index 30+ - obesity 722716211 Active 2015 Bhupinder Perea APRN [address], [place], [address] , [place] - [facility] 2 17:29:08 Benign essentia l hyperten je 6540279 Active 2015 Bhupinder Perea, CLOTH EDGE SINGER [address], [place], [address] , [place] - [facility] 2 17:29:04 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 2015 Not Available [facility] 2 20:25:19 Intramur al leiomyom a of uterus 33838499 Completed 201708/13/2021 Removal Reason: s/p hysterec viola Fabienne Carroll, [employer] SINGER [address], [place], [address] , [place] [facility] 2 20:25:19 Endometr ium thickene d 198670027 Completed 201708/13/2021 Removal Reason: Resolved Fabienne Carroll, [employer] SINGER [address], [place], [address] , [place] [facility] 2 20:24:57 Postmeno pausal bleeding 67211831 Completed 201708/13/2021 Removal Reason: resolved Fabienne Carroll, [employer]INGER [address], [place], [address] , [place] [facility] 2 20:24:43 Vitamin D deficien 50338327 Active 2018 Bhupinder Perea, [employer]INGER [address], [place], [address] , [place] [facility] 3 08:59:56 Suspecte d COVID-19 000101216 Completed 201911/25/2020 Removal Reason: Problem marked historic al by user [email or web address] from the COVID-19 watch flag Amarilis Padron, RN [address], [place], [address] , [place] [facility] 1 15:21:33 Adenocar cinoma of uterus 518438568 Active 2020 Bhupinder Perea, [employer]INGER [address], [place], [address] , [place] [facility] 2 17:29:00 Spasm of back muscles 787419683 Active 2021 Not Available [facility] 2 20:25:19 Heart disease 16268158 Active 2023 Jillian Gonzalez [facility], [place] - [facility] 4 16:55:33 Coronary arterios clerosis 98426320 Active 2024 Bhupinder Perea, [employer] SINGER [address], [place], [address] , [place] - [facility] 5 09:14:55 Neuropat hy 090170502 Active 2024 Bhupinder Perea, [employer]INGER [address], [place], [address] , [place] - [facility] 5 08:41:43 Problem Notes None recorded. Procedures Surgical History Date Name Laterality Status Provider Name and Address Organization Details Recorded Time 02/28/20 25 Date of Last Mammogram completed Fabienne AngeloHELEN moreno [address], [place], [address], [place] - [facility] 02/27/2025 18:59:33 08/17/19 25 Advance Care Planning completed Rosy Sharif [place] - [facility] 08/16/2024 08:04:03 08/17/19 25 Functional Status Assessed completed Rosy Sharif [place] - [facility] 08/16/2024 08:04:03 01/26/20 24 Most Recent Bone Density completed Fabienne AngeloHELEN moreno [address], [place], [address], [place] - [facility] 01/31/2024 08:20:30 11/23/19 24 Date of Last Pap Smear completed Fabiennejorge luis Carroll APRN [address], [place], [address], [place] - [facility] 11/27/2023 22:02:31 08/17/19 24 placement of stent in pulmonary artery completed Jillian Gonzalez [place] - [facility] 09/27/2023 16:55:53 08/17/19 24 Cardiac Cath completed Jillian Gonzalez [place] [facility] 02/05/2025 17:52:29 06/13/19 24 Ear Tubes - Tympanostomy Tubes completed Rosy [place] - [facility] 07/05/2023 16:33:31 01/12/20 23 Advance Care Planning completed Rosy Sharif [place] - [facility] 01/11/2023 08:27:39 01/12/20 23 Functional Status Assessed completed Rosy Sharif [place] [facility] 01/11/2023 08:27:39 01/27/20 22 Advance Care Planning completed [place]y Sharif [place] [facility] 01/26/2022 16:55:25 01/27/20 22 Functional Status Assessed completed Rosy Sharif [place] [facility] 01/26/2022 16:55:25 01/16/20 21 A1C level 7.0 to 7.9 completed [place]abell Wilson [place] [facility] 01/15/2021 13:27:09 12/21/19 21 Cancer Surgery completed Jillian Gonzalez [place] [facility] 02/05/2025 17:52:29 12/20/19 21 Salpingo-oophorect richardson, Bilateral completed Gisselle Boland [place] [facility] 08/12/2021 14:14:21 12/20/19 21 Hysterectomy, Total laparoscopic completed Gisselle Boland [place] [facility] 08/12/2021 14:14:30 11/19/19 21 cervical polypectomy completed Gema Jennings [place] [facility] 11/20/2020 11:42:59 07/19/19 21 Systolic B/P less than 130 mm Hg completed [place]abell Wilson [place] [facility] 07/18/2020 11:18:44 07/19/19 21 Diastolic B/P 80-89 mm Hg completed [place]abell [place] [facility] 07/18/2020 11:18:49 07/16/19 21 Endometrial Biopsy completed Fabienne Carroll APRN [address], [place], [address], [place] [facility] 07/16/2020 09:09:46 07/16/19 21 Endometrial Biopsy completed Fabienne Carroll APRN [address], [place], [address], [place] [facility] 07/18/2020 08:17:26 05/22/19 21 Systolic B/P less than 130 mm Hg completed [place]abell Wilson [place] [facility] 05/22/2020 09:40:12 05/22/19 21 Diastolic B/P less than 80 mm Hg completed [place]abell Wilson [place] [facility] 05/22/2020 09:40:14 02/15/20 20 Systolic B/P less than 130 mm Hg completed [place]abell [place] [facility] 02/15/2020 14:29:36 02/15/20 20 Diastolic B/P 80-89 mm Hg completed [place]abell Wilson [place] [facility] 02/15/2020 14:29:39 01/15/20 20 Diastolic B/P 80-89 mm Hg completed [place]abell [place] [facility] 01/15/2020 13:58:40 01/15/20 20 Systolic B/P 130-139 mm Hg completed [place]abell Wilson [place] [facility] 01/15/2020 13:58:37 01/15/20 20 Medication Reconcilliation completed Amarilis Padron RN [address], [place], [address], [place] [facility] 01/15/2020 13:50:20 11/23/19 Advance Care Planning completed Amarilis Padron RN [address], [place], [address], [place] [facility] 11/23/2019 09:44:35 11/23/19 20 Diastolic B/P 80-89 mm Hg completed [place]abell Katie [place] [facility] 11/23/2019 11:21:57 11/23/19 20 Systolic B/P greater than or equal to 140 mm Hg completed Anabell Jone [place] - [facility] 11/23/2019 11:21:54 11/23/19 20 Functional Status Assessed completed Amarilis Padron RN [address], [place], [address], [place] [facility] 11/23/2019 09:44:35 10/01/19 20 Diastolic B/P 80-89 mm Hg completed Anabell Wilson [place] [facility] 10/01/2019 14:07:50 10/01/19 20 Systolic B/P greater than or equal to 140 mm Hg completed Anabell Wilson [place] [facility] 10/01/2019 14:07:47 07/06/19 20 Colposcopy completed Fabienne Carroll APRN [address], [place], [address], [place] [facility] 07/09/2019 05:54:10 07/06/19 20 Colposcopy completed Fabienne Carroll APRN [address], [place], [address], [place] [facility] 07/09/2019 05:56:12 07/06/19 20 Colposcopy completed Fabienne Angelomond [employer] [address], [place], [address], [place] [facility] 07/16/2019 08:34:41 01/27/20 19 Cervical Polyp Removal completed Fabienne Angelomond, [employer] [address], [place], [address], [place] [facility] 01/29/2019 05:55:21 01/27/20 19 Cervical Polypectomy completed Fabienne Angelomond, [employer] [address], [place], [address], [place] [facility] 01/31/2019 07:01:29 01/26/20 19 Diastolic B/P less than 80 mm Hg completed Anabell Wilson [place] [facility] 01/25/2019 08:56:32 01/26/20 19 Systolic B/P 130-139 mm Hg completed Anabell Wilson [place] [facility] 01/25/2019 08:56:40 10/25/19 19 Date of Last Colonoscopy completed Fabienne Angelomond, [employer] [address], [place], [address], [place] [facility] 08/12/2021 14:33:00 10/25/19 19 Colonoscopy completed Lee Ann Farah [place] [facility] 01/25/2019 08:43:31 06/09/19 19 Medication Reconcilliation completed Shahab Teague [place] [facility] 06/09/2018 15:04:13 07/02/19 18 Endometrial Biopsy completed Fabienne CarlyHEMAL morenoN [address], [place], [address], [place] [facility] 07/03/2017 20:12:25 07/02/19 18 Endometrial Biopsy completed Fabiennejorge luis Carroll [employer] [address], [place], [address], [place] [facility] 07/06/2017 16:09:43 08/15/19 14 [place] Surgery completed Jillian Gonzalez [place] [facility] 02/05/2025 17:52:29 06/16/19 12 Cervical Polypectomy completed Fabiennejorge luis Carroll APRN [address], [place], [address], [place] - [facility] 06/22/2017 14:27:05 01/30/19 74 Caesarean Section completed Gisselle Boland [place] - [facility] 06/22/2017 14:07:55 Colonoscopy completed Gisselle Boland [facility] 06/22/2017 14:09:16 cardiac catheterization completed Jillian Gonzalez [place] [facility] 09/27/2023 16:56:11 Imaging Results None recorded. Procedure Notes None recorded. Medical Equipment None Reported. Allergies No known drug allergies Medications Name Sig Start Date Stop Date Status Note LastModified by Organization Details LastModified Time Zocor 20 mg tablet take 1 tablet (20 mg) by oral route once daily in the evening 10/12 completed Zocor 20 mg oral tablet;R ecorded Status: Recorded on: 03/30/20 11 9:00AM;D iscontin ued Status: Disconti nued on: 10/13/19 13 2:40PM;U ser: himese;P rinted: 03/30/20 11 Not Available Not Available Not Available cyclobenz aprine 10 mg tablet take 1 tablet (10 mg) by oral route 2 times per day 01/16 completed cycloben zaprine 10 mg oral tablet;R ecorded Status: Recorded on: 07/07/19 14 3:59PM;D iscontin ued Status: Disconti nued on: 01/17/20 14 8:49AM;U ser: himese;P rinted: 07/07/19 14 Not Available Not Available Not Available amoxicill in 500 mg capsule take 1 capsule (500 mg) by oral route 3 times per day 10/12 completed amoxicil gerard 500 mg oral capsule; Recorded Status: Recorded on: 05/05/19 13 2:33PM;D iscontin ued Status: Disconti nued on: 10/13/19 13 2:40PM;U ser: poczatek p;Est. Completi on: 05/15/19 13;Print ed: 05/05/19 13 Not Available Not Available Not Available medroxypr ogesteron e 10 mg tablet TAKE 1 TABLET BY MOUTH ONCE DAILY FOR 10 DAYS DIRECTED 08/11 completed Not Available Not Available Not Available latanopro st 0.005 % eye drops INSTILL 1 DROP INTO EACH EYE AT BEDTIME active Not Available Not Available No t Available atorvasta tin 40 mg tablet 40 mg by oral route. active Not Available Not Available No t Available metformin 500 mg tablet TAKE ONE TABLET BY MOUTH EVERY EVENING 08/16 completed Not Available Not Available Not Available cyanocoba cathy (vit B-12) ER 1,000 mcg tablet,ex tended release 11/22 completed Not Available Not Available Not Available acetamino phen 325 mg tablet TAKE TWO (2) TABLETS BY MOUTH EVERY FOUR (4) (FOUR) HOURS NEEDED FOR MILD PAIN . 01/26 completed Not Available Not Available Not Available prednison e 10 mg tablet Take 1 tablet twice a day by oral route for 5 days. 08/16 completed Not Available Not Available Not Available atorvasta tin 20 mg tablet take 1 tablet (20 mg) by oral route once daily for 90 days 03/19 completed atorvast atin 20 mg oral tablet;R ecorded Status: Recorded on: 10/02/19 16 5:11PM;U ser: [email or web address] p;Est. Completi on: 03/30/20 16 Not Available Not Available Not Available Depo-Medr ol 40 mg/mL suspensio n for injection 1 ml IM for one dose 01/25 completed Not Available Not Available Not Available biotin 5 mg capsule Take 5 mg by oral route. 11/22 completed Not Available Not Available Not Available aspirin 325 mg tablet Take 1 tablet every day by oral route. 09/26 completed Not Available Not Available Not Available ibuprofen 800 mg tablet prn 07/28 completed Not Available Not Available Not Available fluconazo le 150 mg tablet Take 1 tablet every other day by oral route. 07/25 completed Not Available Not Available Not Available atenolol 100 mg tablet TAKE 1 TABLET BY MOUTH DAILY 11/22 completed Not Available Not Available Not Available Patanol 0.1 % eye drops instill 2 drops into affected eye(s) by ophthalm ic route 2 times per day at an interval of 6 to 8 hours 10/12 completed Patanol 0.1 % ophthalm ic drops;Re corded Status: Recorded on: 12/12/19 10 2:33PM;D iscontin ued Status: Disconti nued on: 10/13/19 13 2:40PM;U ser: himese;I ndicatio n: Allergic Conjunct ivitis - (9617 [id number]);Prin candace: 12/12/19 10 Not Available Not Available Not Available hydrocodo ne 5 mg-acetam inophen 325 mg tablet 11/19 completed Not Available Not Available Not Available Claritin 10 mg tablet take 1 tablet (10 mg) by oral route once daily for 30 days 10/12 completed Claritin 10 mg oral tablet;R ecorded Status: Recorded on: 03/30/20 11 9:00AM;D iscontin ued Status: Disconti nued on: 10/13/19 13 2:40PM;U ser: himese;E st. Completi on: 06/28/19 12;Indic ation: Allergic Rhinitis - (7992 );Prin candace: 03/30/20 11 Not Available Not Available Not Available FreeStyle Lancets 28 gauge USE 1 TO CHECK GLUCOSE ONCE DAILY 08/12 completed Not Available Not Available Not Available Micro-K 10 mEq capsule,e xtended release take 1 capsule by oral route 2 times a day for 30 days 07/11 completed Micro-K 10 mEq oral capsule, extended release; Recorded Status: Recorded on: 10/25/19 09 10:29AM; Disconti nued Status: Disconti nued on: 07/12/19 10 1:09PM;U ser: poczatek p;Est. Completi on: 02/22/20 09;Indic ation: Hypokale iram - (4148 00);Prin candace: 10/25/19 09 Not Available Not Available Not Available ondansetr on HCl 4 mg tablet Take 1 tablet every 8 hours by oral route as needed for 5 days. 12/11 completed Not Available Not Available Not Available isosorbid e mononitra te ER 30 mg tablet,ex tended release 24 hr 1 qd active Not Available Not Available Not Available rizatript an 10 mg tablet Take 10 mg by oral route. 08/16 completed Not Available Not Available Not Available prednison e 5 mg tablet 01/11 completed Not Available Not Available Not Available penicilli n V potassium 500 mg tablet TAKE 1 TABLET BY MOUTH 4 TIMES DAILY UNTIL GONE 02/14 completed Not Available Not Available Not Available Zocor 10 mg tablet take 1 tablet (10 mg) by oral route once daily in the evening for 30 days 10/01 completed Zocor 10 mg oral tablet;R ecorded Status: Recorded on: 04/15/20 14 10:50AM; Disconti nued Status: Disconti nued on: 10/02/19 16 4:23PM;U ser: himese;E st. Completi on: 08/14/19 15;Print ed: 04/15/20 14 Not Available Not Available Not Available amlodipin e 2.5 mg tablet Take 1 tablet every day by oral route. active Not Available Not Available No t Available clopidogr el 75 mg tablet 75 mg by oral route. active Not Available Not Available No t Available Ultracet 37.5 mg-325 mg tablet 1 - 2 tabs po q6h prn pain. 07/11 completed Ultracet 37.5-325 mg oral tablet;R ecorded Status: Recorded on: 05/17/19 09 3:00PM;D iscontin ued Status: Disconti nued on: 07/12/19 10 1:09PM;U ser: [email or web address] p;Est. Completi on: 07/20/19 09;Print ed: 05/17/19 09 Not Available Not Available Not Available Tamiflu 75 mg capsule take 1 capsule (75 mg) by oral route 2 times per day for 5 days 09/14 completed Tamiflu 75 mg oral capsule; Recorded Status: Recorded on: 07/01/19 12 3:46PM;D iscontin ued Status: Disconti nued on: 09/15/19 12 2:19PM;U ser: himese;E st. Completi on: 07/06/19 12;Indic ation: Influenz a - (08.4871 00);Prin candace: 07/01/19 12 Not Available Not Available Not Available aspirin 81 mg tablet,de layed release 81 mg by oral route. active Not Available Not Available No t Available tramadol 50 mg tablet Take 50 mg by oral route. 08/16 completed Not Available Not Available Not Available Diovan 320 mg tablet 1 po qD 06/05 completed Diovan 320 mg oral tablet;R ecorded Status: Recorded on: 03/16/20 13 3:19PM;D iscontin ued Status: Disconti nued on: 06/05/19 14 3:52PM;U ser: himese;E st. Completi on: 07/15/19 14 Not Available Not Available Not Available amoxicill in 500 mg tablet Take 1 tablet twice a day by oral route for 10 days. 02/21 completed Not Available Not Available Not Available ondansetr on 8 mg disintegr ating tablet Place 1 tablet every 8 hours by translin gual route as needed. 07/28 completed Not Available Not Available Not Available acetamino phen ER 650 mg tablet,ex tended release Take 2 tablets twice a day by oral route. 08/11 completed Not Available Not Available Not Available prednison e 10 mg tablets in a dose pack as directed 01/14 completed Not Available Not Available Not Available losartan 100 mg-hydroc hlorothia zide 25 mg tablet TAKE 1 TABLET BY MOUTH DAILY 12/25 completed Not Available Not Available Not Available oxycodone -acetamin ophen 5 mg-325 mg tablet TAKE ONE (1) TO TWO (2) TABLETS BY MOUTH EVERY FOUR (4) (FOUR) HOURS NEEDED (PAIN). 01/15 completed Not Available Not Available Not Available Azopt 1 % eye drops,tricia pension 1 drop into affected eye bid 12/12 completed Azopt 1 % ophthalm ic drops,allen spension ;Recorde d Status: Recorded on: 02/16/20 14 1:18PM;U ser: [email or web address] t Not Available Not Available Not Available gentamici n 0.3 % eye drops instill 1 drop into affected eye(s) by ophthalm ic route every 4 hours for 7 days 10/12 completed gentamic in 0.3 % ophthalm ic drops;Re corded Status: Recorded on: 01/21/20 12 3:06PM;D iscontin ued Status: Disconti nued on: 10/13/19 13 2:40PM;U ser: himese;E st. Completi on: 01/28/20 12;Print ed: 01/21/20 12 Not Available Not Available Not Available aspirin 325 mg tablet,de layed release 325 mg by oral route. 11/19 completed Not Available Not Available Not Available OneTouch Ultra Test strips USE 2 STRIPS TO TEST DAILY 11/22 completed Not Available Not Available Not Available Flagyl 500 mg tablet Take 1 tablet every 12 hours by oral route for 7 days. 01/15 completed Not Available Not Available Not Available meclizine 25 mg tablet Take 1 tablet 3 times a day by oral route. 07/28 completed Not Available Not Available Not Available simvastat in 5 mg tablet 5 mg by oral route. 08/17 completed Not Available Not Available Not Available Glucotrol 10 mg tablet take 1 tablet (10 mg) by oral route once daily before a meal for 30 days 09/12 completed Glucotro l 10 mg oral tablet;R ecorded Status: Recorded on: 05/15/19 15 12:23PM; User: himese;Naga stChristine Completi on: 09/13/19 15 Not Available Not Available Not Available hydrocodo ne 7.5 mg-acetam inophen 325 mg tablet 01/25 completed Not Available Not Available Not Available naproxen sodium 550 mg tablet 550 mg by oral route. active Not Available Not Available No t Available neomycin- polymyxin -dexameth 3.5 mg/mL-10, 000 unit/mL-0 .1% eye drops 08/16 completed Not Available Not Available Not Available Stool Softener 250 mg capsule TAKE ONE (1) CAPSULE BY MOUTH TWO (2) (TWO) TIMES A DAY. TAKE WHILE REQUIRIN G NARCOTIC S 08/12 completed Not Available Not Available Not Available nitroglyc zahraa 0.4 mg sublingua l tablet 0.4 mg by sublingu al route. 2023 active Not Available Not Available Not Avai lable aspirin 81 mg chewable tablet Chew 1 tablet every day by oral route. 07/04 completed Not Available Not Available Not Available diclofena c sodium 75 mg tablet,de layed release take 1 tablet (75 mg) by oral route 2 times per day for 30 days 01/25 completed Not Available Not Available Not Available dorzolami de 22.3 mg-timolo l 6.8 mg/mL eye drops INSTILL 1 DROP INTO BOTH EYE(S) TWICE DAILY active Not Available Not Available No t Available hydrochlo rothiazid e 25 mg tablet 1 po qD 08/12 completed Not Available Not Available Not Available furosemid e 20 mg tablet 01/14 completed Not Available Not Available Not Available gabapenti n 100 mg capsule Take 100 mg by oral route. 12/11 completed Not Available Not Available Not Available nystatin 100,000 unit/gram topical powder APPLY TO THE AFFECTED AREA(S) BY TOPICAL ROUTE 2 TIMES PER DAY 07/25 completed Not Available Not Available Not Available dexametha sone sodium phosphate 4 mg/mL injection solution Inject 1 mL as needed by intramus cular route. 08/18 completed Not Available Not Available Not Available Lumigan 0.03 % eye drops instill 1 drop into affected eye(s) by ophthalm ic route once daily in the evening 11/15 completed Lumigan 0.03 % ophthalm ic drops;Re corded Status: Recorded on: 05/15/19 11 9:10AM;D iscontin ued Status: Disconti nued on: 11/16/19 13 9:38AM;U ser: himese;E st. Completi on: 05/15/19 11 Not Available Not Available Not Available ibuprofen 600 mg tablet 600 mg by oral route. 11/19 completed Not Available Not Available Not Available methylpre dnisolone 4 mg tablets in a dose pack TAKE BY MOUTH DIRECTED ON INSIDE OF PACKAGE 12/11 completed Not Available Not Available Not Available timolol maleate 0.5 % eye drops bid 01/26 completed Not Available Not Available Not Available ketorolac 60 mg/2 mL intramusc ular solution 2 ml IM for one dose 09/30 completed Not Available Not Available Not Available ondansetr on 4 mg disintegr ating tablet Place 2 mg by oral route. 11/22 completed Not Available Not Available Not Available cefdinir 300 mg capsule Take 1 capsule every 12 hours by oral route for 7 days. 03/07 completed Not Available Not Available Not Available losartan 100 mg tablet 100 mg by oral route. active Not Available Not Available No t Available fluticaso ne propionat e 50 mcg/actua tion nasal spray,tricia pension Anderson 1 spray every day by intranas al route. 06/22 completed Not Available Not Available Not Available atenolol 50 mg tablet 1 tablet qd active Not Available Not Available No t Available naproxen 500 mg tablet Take 500 mg by oral route. 09/26 completed Not Available Not Available Not Available amoxicill in 875 mg-potass ium clavulana te 125 mg tablet take 1 tablet by oral route every 12 hours for 7 days 01/11 completed Not Available Not Available Not Available dorzolami de 2 % eye drops 09/26 completed Not Available Not Available Not Available Bactrim DS 800 mg-160 mg tablet take 2 tablets by oral route 2 times a day for 10 days 01/30 completed Bactrim DS 800-160 mg oral tablet;R ecorded Status: Recorded on: 04/23/20 14 3:57PM;D iscontin ued Status: Disconti nued on: 01/31/20 15 3:51PM;U ser: himese;E st. Completi on: 05/03/19 15;Print ed: 04/23/20 14 Not Available Not Available Not Available cyclobenz aprine 5 mg tablet 5 mg by oral route. active Not Available Not Available No t Available Mucinex D 60 mg-600 mg tablet,ex tended release take 1 tablet by oral route 2 times a day 10/12 completed Mucinex D 60-600 mg oral tablet extended release 12 hr;Recor ded Status: Recorded on: 05/05/19 13 2:33PM;D iscontin ued Status: Disconti nued on: 10/13/19 13 2:40PM;U ser: [email or web address] p;Printe d: 05/05/19 13 Not Available Not Available Not Available Aleve 2 po qhs 05/11 completed Not Available Not Available Not Available Vitamin D 1 tablet po daily 08/12 completed Not Available Not Available Not Available potassium one daily otc 09/30 completed Not Available Not Available Not Available FreeStyle Lite Meter kit USE TO CHECK GLUCOSE ONCE DAILY 08/12 completed Not Available Not Available Not Available cholecalc iferol (vitamin D3) 1,250 mcg (50,000 unit) capsule take 1 capsule by oral route once weekly 01/11 completed cholecal ciferol (vitamin D3) 50,000 unit oral capsule; Recorded Status: Recorded on: 10/14/19 16 9:19AM;U ser: [email or web address] Patiño on: 01/12/20 16;Print ed: 10/14/19 16 Not Available Not Available Not Available diclofena c 1 % topical gel APPLY 2 GRAMS TO THE AFFECTED AREA(S) BY TOPICAL ROUTE 4 TIMES PER DAY 07/28 completed Not Available Not Available Not Available Suprep Bowel Prep Kit 17.5 gram-3.13 gram-1.6 gram oral solution 01/25 completed Not Available Not Available Not Available Probiotic 20 billion cell capsule Take 1 capsule every day by oral route. 09/30 completed Not Available Not Available Not Available potassium chloride ER 20 mEq tablet,ex tended release TAKE 1 TABLET BY MOUTH DAILY FOR 7 DAYS 08/16 completed Not Available Not Available Not Available Vitamin B12 1 tablet po daily 08/12 completed Not Available Not Available Not Available Shingrix (PF) 50 mcg/0.5 mL intramusc ular suspensio n, kit 07/15 completed Not Available Not Available Not Available Ozempic 0.25 mg or 0.5 mg (2 mg/1.5 mL) subcutane ous pen injector Inject 0.5 mg every week by subcutan eous route. 11/22 completed Not Available Not Available Not Available OneTouch Ultra2 Meter 11/22 completed Not Available Not Available Not Available OneTouch Delica Plus Lancet 33 gauge 11/22 completed Not Available Not Available Not Available aspirin 325 mg capsule Take 1 capsule every day by oral route. 01/11 completed Not Available Not Available Not Available Mounjaro 7.5 mg/0.5 mL subcutane ous pen injector INJECT 7.5 MG UNDER THE SKIN ONCE WEEKLY 2024 active Not Available Not Available Not Antolinteodoro beltrancalista Mounjaro 5 mg/0.5 mL subcutane ous pen injector Inject 5 mg every week by subcutan eous route. 01/10 completed Not Available Not Available Not Available Mounjaro 2.5 mg/0.5 mL subcutane ous pen injector Inject 2.5 mg every week by subcutan eous route. 08/16 completed Not Available Not Available Not Available semagluti de 0.25 mg or 0.5 mg (2 mg/3 mL) subcutane ous pen injector Inject 0.25 mg by sub-q route. 09/26 completed Not Available Not Available Not Available Vitals Date Recorded Body height Body mass index (BMI) Body weight Heart rate Body temperature Oxygen saturation Respiratory rate Pain severity - 0-10 verbal numeric rating [Score] - Reported Systolic And Diastolic Provider Name and Address Organization Details Last Updated DateTime 5 162.56 cm 24 kg/m2 34654.9 3 g 73 /min 98.1 [degF] 99 % 18 /min 0 126/78 mm[Hg] Rosy Sharif [place] - [facility] 5 08:09:12 Social History Question Answer Notes LastModified by Organization Details LastModified Time Tobacco Smoking Status Former Smoker Gisselle huang, [place] - [facility] 11/23/2023 14:48:13 Do You Have An Advance Directive? Yes [email or web address] Information not available 11/23/2023 Are You Blind Or Do You Have Difficulty Seeing? No Information not available 07/18/2020 Is Blood Transfusion Acceptable In An Emergency? Yes [email or web address] Information not available 07/15/2020 What Is Your Level Of Caffeine Consumption? Occasional Information not available 02/05/2025 How Much Tobacco Do You Chew? None Information not available 03/19/2016 In The 14 Days Before Symptom Onset, Have You Had Close Contact With A Laboratory-kev johnsoned COVID-19 While That Case Was Ill? No [email or web address] Information not available 08/12/2021 In The 14 Days Before Symptom Onset, Have You Had Close Contact With A Person Who Is Under Investigation For COVID-19 While That Person Was Ill? No [email or web address] Information not available 08/12/2021 Have You Been To An Area Known To Be High Risk For COVID-19? No [email or web address] Information not available 08/12/2021 Are You Deaf Or Do You Have Serious Difficulty Hearing? No Information not available 02/05/2025 What Type Of Diet Are You Following? DIABETIC [email or web address] Information not available 11/23/2023 Which Illicit Or Recreational Drugs Have You Used? None Information not available 03/19/2016 Have You Processed Blood Or Body Fluids From An Ebola Virus Disease Patient Without Appropriate PPE? No [email or web address] Information not available 08/12/2021 Do You Reside In Or Have You Traveled To An Area Where Ebola Virus Transmission Is Active? No [email or web address] Information not available 08/12/2021 What Is The Highest Grade Or Level Of School You Have Completed Or The Highest Degree You Have Received? [id number] [email or web address] Information not available 11/23/2023 How Many Days Of Moderate To Strenuous Exercise, Like A Brisk Walk, Did You Do In The Last 7 Days? 0 Information not available 07/18/2020 On Those Days That You Engage In Moderate To Strenuous Exercise, How Many Minutes, On Average, Do You Exercise? 0 Information not available 07/18/2020 Have There Been Any Changes To Your Family Or Social Situation? No [email or web address] Information not available 08/12/2021 How Hard Is It For You To Pay For The Very Basics Like Food, Housing, Medical Care, And Heating? Not Very Hard [email or web address] Information not available 08/12/2021 What Is The Fluoride Status Of Your Home? Fluoridated [email or web address] Information not available 08/12/2021 When Did You Quit Smoking? 1-5yearssinselina arnold [email or web address] Information not available 11/23/2023 Hard Of Hearing Or Deaf In One Or Both Ears? No Information not available 03/19/2016 Have You Recently Or Are You Planning To Travel To An Area With Zika Virus? No [email or web address] Information not available 08/12/2021 Legally Blind In One Or Both Eyes? No Information not available 03/19/2016 Live Alone Or With Others? With Others Information not available 03/19/2016 Last Menstrual Period? 01/11/2020 Information not available 07/15/2020 Do You Have A Medical Power Of Airplane Flight Attendant Supervisor? No [email or web address] Information not available 08/12/2021 What Was The Date Of Your Most Recent Tobacco Screening? 08/16/2024 [email or web address] Information not available 08/16/2024 How Many Children Do You Have? 1 Information not available 03/19/2016 Performs Monthly Self-breast Exam? Yes [email or web address] Information not available 06/22/2017 Do You Use Protection During Sex? No Information not available 03/19/2016 Do You Use Protection Against STDs? No [email or web address] Information not available 08/12/2021 What Is Your Relationship Status? [email or web address] Information not available 11/23/2023 Do You Use Your Seat Belt Or Car Seat Routinely? Yes [email or web address] Information not available 11/23/2023 Seat Belts Used Routinely Yes [email or web address] Information not available 06/22/2017 Are You Sexually Active? No [email or web address] Information not available 11/23/2023 Smoke Alarm In Home Yes Information not available 03/19/2016 Do You Have Smoke And Carbon Monoxide Detectors In Your Home? Yes [email or web address] Information not available 08/12/2021 At What Age Did You Start Smoking Tobacco? 61 [email or web address] Information not available 11/23/2023 Are You Passively Exposed To Smoke? No [email or web address] Information not available 11/23/2023 How Much Tobacco Do You Smoke? No Information not available 03/19/2016 General Stress Level Low Information not available 03/19/2016 Do You Use Sunscreen Routinely? Yes [email or web address] Information not available 06/22/2017 Has Tobacco Cessation Counseling Been Provided? Yes [email or web address] Information not available 11/23/2023 On What Date Was Tobacco Cessation Counseling Provided? 11/23/2023 [email or web address] Answered No To The Tobacco Cessation Counseling Provided Question On 06/22/2017. [email or web address] Information not available 11/23/2023 How Many Years Have You Smoked Tobacco? 0 Information not available 03/19/2016 Do You Have Difficulty Walking Or Climbing Stairs? No [email or web address] Information not available 08/11/2020 What Contraceptive Method Was Reported At Start Of This Visit? Vasectomy [email or web address] Information not available 08/12/2021 What Contraceptive Method Was Reported At End Of This Visit? Female Sterilization Information not available 08/12/2021 Do You Want To Talk About Contraception Or Prevention During Your Visit Today? No - I Do Not Want To Talk About Contraception Today Because I Am Here For Something Else [email or web address] Information not available 08/12/2021 How Was The Contraceptive Method Provided? Provided On Site [email or web address] Information not available 08/12/2021 Do You Have Any Future Plans To Get ? No, I Don't Want To Become [email or web address] Information not available 08/12/2021 Sex: Female Functional Status Question Answer Note LastModified by Organizat ion Details LastModified Time Do you or have you ever used smokeless tobacco? Never used smokeless tobacco [email or web address] Information not available 01/26/2019 Are you currently employed? Yes Information not available 03/19/2016 Do you have transportation difficulties? No [email or web address] Information not available 08/12/2021 Are you able to care for yourself independently? Yes Information not available 03/19/2016 Do you have difficulty dressing, bathing, grooming, or toileting? No [email or web address] Information not available 08/11/2020 Do you or have you ever used e-cigarettes or vape? Never used electronic cigarettes [email or web address] Information not available 01/26/2019 What is your exercise level? Occasional Information not available 02/05/2025 Do you use any illicit or recreational drugs? No [email or web address] Information not available 08/12/2021 Do you or have you ever used any other forms of tobacco or nicotine? No [email or web address] Information not available 08/12/2021 What is your level of alcohol consumption? None Information not available 11/23/2023 What is your status? Not [email or web address] Information no t available 08/12/2021 Are you able to walk independently without assistance or assistive devices? YESWOREST [email or web address] Information not available 08/11/2020 Do you have difficulty doing errands alone? No [email or web address] Information not available 08/11/2020 What is your occupation? [employer] Information not available 02/05/2025 Mental Status Question Answer Note LastModified by Organizat ion Details LastModified Time Do you feel stressed (tense, restless, nervous, or anxious, or unable to sleep at night)? [id number] [email or web address] Information not available 11/23/2023 Do you have difficulty concentrating, remembering or making decisions? No [email or web address] Information no t available 08/11/2020 Family History Relationship Description Onset Age of this Age Resolved Age Notes LastModified by Organization Details LastModified Time Father Heart disease Not available 2015 16:03:30 Mother Heart disease Not available 2015 16:03:30 Mother Diabetes mellitus Not available 2015 16:03:36 Brother Heart disease [email or web address] Not available 2017 14:05:35 Unspecified Relation Kidney disease Not available 2023 14:47:28 Medical History Condition Response Heart Problems Y Diabetes Y Arthritis Y Hyperlipidemia Y Cancer Y Hypercholesterolemia Y Heart Disease Y Neuropathy Y Hypertension Y Gynecological History Statement/Question Response Date of Last Mammogram 02/27/2025 Flow Light Date of LMP 01/11/2020 Post Menopausal Bleeding Y STIs/STDs N Last Lipids If Post Menopausal, Age at Menopause 60 Date of Last Colonoscopy 10/24/2018 Desired Control Method Hysterectom y Abnormal Pap Y On BCP's at Conception? N HPV Vaccine N Colposcopy 07/06/2019 Duration of Flow (days) 2 Age at Menarche 10 Current Control Method Hysterectom y Age at First Child 18 Last Annual Exam/Provider 11-23-23 Most Recent Bone Density 01/26/2024 Sexually Active? N Menses Monthly N Date of Last Pap Smear 11/23/2023 Sexual Problems? N LMP Approximate Hormone Replacement Therapy N Obstetrics History GPAL:G 2 P 1 0 1 1 Type Value Full Term 1 Induced 1 Living 1 Total 2 Immunizations Vaccine Type Date Status Note Provider Name and Address Organization Details Recorded Time zoster recombinant 024 cancelled patient objection Bhupinder Perea, [employer] [address], [place], [address], [place] - [facility] 12/12/2023 16:38:17 zoster recombinant 025 cancelled patient objection Bhupinder Perea, [employer] [address], [place], [address], [place] [facility] 08/16/2024 09:13:03 Influenza, high-dose, trivalent, PF 025 cancelled patient objection Bhupinder Perea, [employer] [address], [place], [address], [place] [facility] 08/16/2024 09:13:03 Influenza, high-dose, quadrivalent, PF 022 completed Rosy Kole null, [place] - [facility] 03/11/2022 16:24:57 Tdap 016 completed Rosy Kole null, [place] - [facility] 03/11/2022 16:24:57 Influenza, high-dose, quadrivalent, PF 022 completed Rosy Kole null, [place] - [facility] 03/11/2022 16:24:57 Pneumococcal conjugate PCV 13 019 completed Rosy Kole null, [place] - [facility] 03/11/2022 16:24:57 zoster recombinant 020 completed Rosy [place]ole null, [place] - [facility] 03/11/2022 16:24:58 Influenza, split virus, quadrivalent, preservative 019 completed Rosy Kole null, [place] - [facility] 03/11/2022 16:24:58 Influenza, high-dose, trivalent, PF 019 completed Rosy [place]ole null, [place] - [facility] 03/11/2022 16:24:58 pneumococcal polysaccharide PPV23 020 completed Rosy Kole null, [place] - [facility] 03/11/2022 16:24:58 Influenza, high-dose, quadrivalent, PF 020 completed Rosy Kole null, [place] - [facility] 03/11/2022 16:24:58 Influenza, high-dose, quadrivalent, PF 10/13/2 023 completed Rosy Kole null, [place] - [facility] 07/05/2023 16:25:26 influenza, unspecified formulation 020 completed [facility] [place] - [facility] 12/26/2023 11:44:30 Past Encounters Encounter ID Performer Location Encounter Start Date Encounter Closed Date Diagnosis/Indication Diagnosis SNOMED-CT Code Diagnosis ICD10 Code Diagnosis IMO Codes Diagnosis Note [id number] Bhupinder Perea APRN [address] [address] 01/10/2025 07:50:00 01/10/2025 09:40:38 Normal weight 22532869 Z68.24 [id number] Body mass index 20-24 - normal 338617523 Z68.24 [id number] Benign ess ential hypertension 2567370 I10 Coronary arteriosclerosis 18217294 I25.10 [id number] Hypercholesterolemia 136 21971 E78.00 Diabetes mellitus 707665 09 E11.9 labscontin ue diet and meds Vitamin D deficiency 347 03724 E55.9 Health Concerns Section Related Observation LastModified by Organization Detai ls LastModified Time None Recorded Concern Status LastModified by Organization Details LastModified Time None Recorded Payers Encounter Date Sequence Insurance Name Policy Number Policy Marcial Covered Member ID Marcial Member ID Guarantor Name 01/10/2025 1 BCLUIS-ABE: [employer] (MEDICARE REPLACEMENT HMO) [id number] [employer] [id number] [employer] Notes Date Note Type Note Provider Name and Address Organization Details Recorded Time 01/10/2025 text/html Diabetes F/UReported by PatientHPIFor labs, patient reportslast a1c result: 5.8. For context, patient reportsnormal range of home blood sugars (in the low 100s),seeing eye doctor regularly, andchecking feet regularly. For associated symptoms, patient reportsno weight gain,no weight loss,no dizziness,no sweats,no headaches,no confusion,no increased thirst,no increased appetite,no increased urination,no blurred vision,no numbness of feet, andno calluses on feet. 69 yr old female presents for labs and follow up on diabetes.pt states she is doing well. pt states she does not check her glucose everyday but when she does its around 100. pt states she is trying to be more active playing pickle ball and walking. states this helps the neuropathy Bhupinder Perea, [employer] [address], [place], [address], [facility] - [facility] 01/10/2025 08:42:33 OBGyn Episode No OBEpisode recorded.
--- OUTSIDE RECORDS SUMMARY | 2025-03-29 10:56 | XMS_ITS | Encounter Summary ---
Author Organization [facility] Address [address] [place] [address] Care Team Providers Care Copy Supervisor Name Role Phone Bhupinder Guzmán APRN Primary Care Provider +1- [phone] Encounter Details Date Type Department Care Team (Latest Contact Info) Description 03/14/2025 Travel Social History Tobacco Use Types Packs/Day Years [...] Description 04/02/2025 3:15 PM EST Office Visit [facility] [address] [place] [address] Bright Jones MD [address] [address] Glaucoma suspect of both eyes [...] documented as of this encounter Care Teams Copy Supervisor Relationship Specialty Start Date End Date Bhupinder Guzmán APRN [address] [place] [id number] PCP - General 03/18/23 documented as of this encounter
--- OUTSIDE RECORDS SUMMARY | 2025-03-29 10:56 | XMS_ITS | Encounter Summary ---
Author Organization [facility] Address [address] [place] [address] Care Team Providers Care Obstetrics/Gynecology Nurse Name Role Phone Bhupinder Guzmán APRN Primary Care Provider +1- [phone] Encounter Details Date Type Department Care Team (Latest Contact Info) Description 02/21/2025 Travel Social History Tobacco Use Types Packs/Day [...] Description 04/02/2025 3:15 PM EST Office Visit [facility] [address] [place] [address] Bright Jones MD [address] [address] Glaucoma suspect of both eyes [...] documented as of this encounter Care Teams Obstetrics/Gynecology Nurse Relationship Specialty Start Date End Date Bhupinder Guzmán APRN [address] [place] [address] [id number] PCP - General 03/18/23 documented as of this encounter
--- OUTSIDE RECORDS SUMMARY | 2025-03-29 10:56 | XMS_ITS | Encounter Summary ---
Author Organization [facility] Address [address] [place] [address] Care Team Providers Care Plant Changer Name Role Phone Bhupinder Guzmán APRN Primary Care Provider +1- [phone] Encounter Details Date Type Department Care Team (Latest Contact Info) Description 02/12/2025 Travel Social History Tobacco Use Types Packs/Day [...] Description 04/02/2025 3:15 PM EST Office Visit [facility] [address] [place] [address] Bright Jones MD [address] [address] Glaucoma suspect of both eyes [...] documented as of this encounter Care Teams Plant Changer Relationship Specialty Start Date End Date Bhupinder Guzmán APRN [address] [place] [address] [id number] PCP - General 03/18/23 documented as of this encounter
--- OUTSIDE RECORDS SUMMARY | 2025-03-29 10:56 | XMS_ITS | Encounter Summary ---
Author Organization [facility] Address [address] [place] [address] Care Team Providers Care Commercial Cleaner Name Role Phone Bhupinder Guzmán APRN Primary Care Provider +1- [phone] Encounter Details Date Type Department Care Team (Latest Contact Info) Description 01/29/2025 Travel Social History Tobacco Use Types Packs/Day [...] Description 04/02/2025 3:15 PM EST Office Visit [facility] [address] [place] [address] Bright Jones MD [address] [address] Glaucoma suspect of both eyes [...] documented as of this encounter Care Teams Commercial Cleaner Relationship Specialty Start Date End Date Bhupinder Guzmán APRN [address] [place] [id number] PCP - General 03/18/23 documented as of this encounter
--- OUTSIDE RECORDS SUMMARY | 2025-03-29 10:57 | XMS_ITS | Continuity of Care Document ---
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 Plan of Treatment Reminders Order Date Submit Date Provider Last Modified By Organization Details Last Modified Time Details Appointments None recorded. Lab None recorded. Referral ENT surgery referral 2024 [facility], [address], [place], [address], 5 04:10:12 Procedures None recorded. Surgeries None recorded. Imaging None recorded. Medication Orders cefdinir 300 mg capsule 2024 [facility] [id number], [address] [place] [address], [place], [address], 5 05:02:01 Patient TargetsNo targets recorded. Patient InstructionsNo instructions recorded. Reason for Referral ENT Surgery Referral for Acu te left otitis media Referring Physician: Mcihael Perea, Family Medicine, Encounter Date: 02/21/2025 Results Created Date Observation Date Name Description Value Unit Range Abnormal Flag Note LastModifiedBy Organization Detail LastModifiedTime 02/06/20 25 02/06/2025 TSH TSH 4.150 uIU/m L 0.450- 4.500 normal Not Available [facility] ([facility]) [address], [place], [address], 02/06/2025 13:07:52 02/28/20 25 02/27/2025 - scn dig breas t tomos yn manuel [facility] Name: IDANIA MILLS LA [employer] Phys: 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 IMPRES JOSE RAFAEL: No eviden ce of malign chari in [...] has breast surger y or biopsy , FDA/MQ SA Regula tory Guidel javier mandat e that this facili ty receiv e pathol ogic result s for follow -up correl ation. Electr onical ly signed by: Dneisha Patel MD 2024 04:07 PM EDT RP Workst ation: [id number] PAGE 1 Signed Report (GIOVANA NUED) [facility] Name: IDANIA MILLS LA [employer] Phys: Francisco J saini NP, [place] [address] : 1955 Age: 69 Sex: F Acct: [id number] Loc: G.MAMM PHONE #: [phone] Exam Date: 2024 Status : REG CLI FAX #: Rad# [id number] Unit# [id number] Admit Date: 2024 EXAMS: CPT CODE: [id number] SCN DIG BREAST TOMOSY N MANUEL [id number] Electr onical ly Signed by DENISHA PATEL MD on 2024 at 1606 Report ed and signed by: KYMBERLY PATEL MD CC: Sole Perea BOOK TRIMMER; [place] saini Dictat ed Date/T jasmyn: 2024 (1606) Techno logist : RAMA DIEHL (RT)(R ) Transc ribed Date/T jasmyn: 2024 (1606) Transc riptio nist: DR.HEN DAN Electr onic Signat ure Date/T jasmyn: 2024 (1606) Printe d Date/T jasmyn: 2024 (1609) BATCH NO: N/A PAGE 2 Signed Report CC'ed Logic: Orderi ng Provid er: FRANCISCO J Cancino Attend ing Provid er: FRANCISCO J Cancino Referr ing Provid er: FRANCISCO J Lin er: BRIT Cancino [facility] [address] , [place], [address], 02/27/2025 19:14:15 Result Notes None recorded. Problems Name Problem SNOMED Code Status Onset Date Resolution Date Notes Provider Name and Address Organization Details Recorded Time M ni re's disease 38219938 Active Jillian Stears null, [place] - [facility] 4 16:46:19 Endometr ium thickene d 295047646 Active Jillian Stears [place], [place] - [facility] 4 16:46:20 History of cardiac catheter ization 29828311692 100 Active Jillian Ste[place] [facility] 4 16:46:20 Postmeno pausal bleeding 19654138 Active Jillian Stears [place] - [facility] 4 16:46:20 Diabetes mellitus 80278866 Active 2015 Michael Perea APRN [address], [place], [address] , [place] [facility] 2 17:29:10 Hypercho lesterol emia 82052073 Active 2015 Michael Perea APRN [address], [place], [address] , [place] [facility] 2 17:29:13 Body mass index 30+ - obesity 957564265 Active 2015 Michael Perea APRN [address], [place], [address] , [place] [facility] 2 17:29:08 Benign essentia l hyperten jose rafael 9065531 Active 2015 Michael Perea APRN [address], [place], [address] , [place] [facility] 2 17:29:04 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 2015 Not Available [facility] 2 20:25:19 Intramur al leiomyom a of uterus 79443100 Completed 201708/13/2021 Removal Reason: s/p hysterec viola Fabienne Carroll, BOOK TRIMMER [address], [place], [address] , [place] [facility] 2 20:25:19 Endometr ium thickene d 023012790 Completed 201708/13/2021 Removal Reason: Resolved Fabienne Carroll, BOOK TRIMMER [address], [place], [address] , [place] [facility] 2 20:24:57 Postmeno pausal bleeding 20006213 Completed 201708/13/2021 Removal Reason: resolved Fabienne Carroll, BOOK TRIMMER [address], [place], [address] , [place] [facility] 2 20:24:43 Vitamin D deficien cy 22577240 Active 2018 Michael Perea, BOOK TRIMMER [address], [place], [address] , [place] [facility] 3 08:59:56 Suspecte d COVID-19 002946910 Completed 201911/25/2020 Removal Reason: Problem marked historic al by user [email or web address] from the COVID-19 watch flag Amarilis Padron RN [address], [place], [address] , [place] [facility] 1 15:21:33 Adenocar cinoma of uterus 316891426 Active 2020 Michael Perea APRN [address], [place], [address] , [place] [facility] 2 17:29:00 Spasm of back muscles 623856812 Active 2021 Not Available [facility] 2 20:25:19 Heart disease 66417882 Active 2023 Jillian Gonzalez null, [place] - [facility] 4 16:55:33 Coronary arterios clerosis 00274579 Active 2024 Michael Perea APRN [address], [place], [address] , [place] [facility] 5 09:14:55 Neuropat hy 198676436 Active 2024 Michael Perea, BOOK TRIMMER [address], [place], [address] , [place] [facility] 08:41:43 Problem Notes None recorded. Procedures Surgical History Date Name Laterality Status Provider Name and Address Organization Details Recorded Time 02/28/20 25 Date of Last Mammogram completed Fabienne Carroll, BOOK TRIMMER [address], [place], [address], [place] [facility] 02/27/2025 18:59:33 08/17/19 25 Advance Care Planning completed Rosy Sharif [place] - [facility] 08/16/2024 08:04:03 08/17/19 25 Functional Status Assessed completed Rosy [place] - [facility] 08/16/2024 08:04:03 01/26/20 24 Most Recent Bone Density completed Fabienne Carroll, BOOK TRIMMER [address], [place], [address], [place] [facility] 01/31/2024 08:20:30 11/23/19 24 Date of Last Pap Smear completed Fabienne Carroll, BOOK TRIMMER [address], [place], [address], [place] [facility] 11/27/2023 22:02:31 08/17/19 24 placement of stent in pulmonary artery completed Jillian Gonzalez [place] [facility] 09/27/2023 16:55:53 08/17/19 24 Cardiac Cath completed Jillian Gonzalez [place] [facility] 02/05/2025 17:52:29 06/13/19 24 Ear Tubes - Tympanostomy Tubes completed Rosy Sharif [place] [facility] 07/05/2023 16:33:31 01/12/20 23 Advance Care Planning completed Rosy Sharif [place] [facility] 01/11/2023 08:27:39 01/12/20 23 Functional Status Assessed completed Rosy [place] - [facility] 01/11/2023 08:27:39 01/27/20 22 Advance Care Planning completed Rosy [place] - [facility] 01/26/2022 16:55:25 01/27/20 22 Functional Status Assessed completed Rosy FISH - [facility] 01/26/2022 16:55:25 01/16/20 21 A1C [...] completed Fabienne Carroll APRN [address], [place], [address], [place] [facility] 07/16/2020 09:09:46 07/16/19 21 Endometrial Biopsy completed Fabienne Carroll APRN [address], [place], [address], [place] [facility] 07/18/2020 08:17:26 05/22/19 21 Systolic B/P less than 130 mm Hg completed Anabell Wilson [place] [facility] 05/22/2020 09:40:12 05/22/19 21 Diastolic B/P less than 80 mm Hg completed [place]abell [place] [facility] 05/22/2020 09:40:14 02/15/20 20 Systolic B/P less than 130 mm Hg completed [place]abell Wilson [place] [facility] 02/15/2020 14:29:36 02/15/20 Diastolic B/P 80-89 mm Hg completed [place]abell [place] [facility] 02/15/2020 14:29:39 01/15/20 Diastolic B/P 80-89 mm Hg completed [place]abell [place] [facility] 01/15/2020 13:58:40 01/15/20 20 Systolic B/P 130-139 mm Hg completed Anabell Wilson [place] [facility] 01/15/2020 13:58:37 01/15/20 20 Medication Reconcilliation completed Amarilis Padron RN [address], [place], [address], [place] [facility] 01/15/2020 13:50:20 11/23/19 20 Advance Care Planning completed Amarilis Padron RN [address], [place], [address], [place] [facility] 11/23/2019 09:44:35 11/23/19 20 Diastolic B/P 80-89 mm Hg completed Anabell Wilson [place] - [facility] 11/23/2019 11:21:57 11/23/19 20 Systolic B/P greater than or equal to 140 mm Hg completed Anabell Wilson [place] [facility] 11/23/2019 11:21:54 11/23/19 20 Functional Status Assessed completed Amarilis Padron RN [address], [place], [address], [place] [facility] 11/23/2019 09:44:35 10/01/19 20 Diastolic B/P 80-89 mm Hg completed Anabell Wilson [place] - [facility] 10/01/2019 14:07:50 10/01/19 20 Systolic B/P greater than or equal to 140 mm Hg completed [place]abell Wilson [place] [facility] 10/01/2019 14:07:47 07/06/19 20 Colposcopy completed Fabienne Carroll APRN [address], [place], [address], [place] [facility] 07/09/2019 05:54:10 07/06/19 20 Colposcopy completed Fabienne Carroll APRN [address], [place], [address], [place] [facility] 07/09/2019 05:56:12 07/06/19 20 Colposcopy completed Fabienne Carroll APRN [address], [place], [address], [place] [facility] 07/16/2019 08:34:41 01/27/20 19 Cervical Polyp Removal completed Fabienne Carroll APRN [address], [place], [address], [place] [facility] 01/29/2019 05:55:21 01/27/20 19 Cervical Polypectomy completed Fabienne Carroll APRN [address], [place], [address], [place] [facility] 01/31/2019 07:01:29 01/26/20 19 Diastolic B/P less than 80 mm Hg completed Anabell Wilson [place] [facility] 01/25/2019 08:56:32 01/26/20 19 Systolic B/P 130-139 mm Hg completed [place]abell Wilson [place] [facility] 01/25/2019 08:56:40 10/25/19 19 Date of Last Colonoscopy completed Fabienne Carroll APRN [address], [place], [address], [place] [facility] 08/12/2021 14:33:00 10/25/19 19 Colonoscopy completed Lee Ann Farah [place] [facility] 01/25/2019 08:43:31 06/09/19 19 Medication Reconcilliation completed Shahab Teague [place] [facility] 06/09/2018 15:04:13 07/02/19 18 Endometrial Biopsy completed Fabienne Carroll APRN [address], [place], [address], [place] [facility] 07/03/2017 20:12:25 07/02/19 18 Endometrial Biopsy completed Fabienne Carroll APRN [address], [place], [address], [place] [facility] 07/06/2017 16:09:43 08/15/19 14 Eye Surgery completed Jillian Lockes [place] [facility] 02/05/2025 17:52:29 06/16/19 12 Cervical Polypectomy completed Fabienne Carroll APRN [address], [place], [address], [place] [facility] 06/22/2017 14:27:05 01/30/19 74 Caesarean Section completed Gisselle Boland [place] [facility] 06/22/2017 14:07:55 Colonoscopy completed [place]isselle [place] [facility] 06/22/2017 14:09:16 cardiac catheterization completed Jillian Gonzalez [place] [facility] 09/27/2023 16:56:11 Imaging Results None [...] himese;I ndicatio n: Allergic Conjunct ivitis - (372);Prin candace: 12/12/19 10 Not Available Not Available [...] on: 06/28/19 12;Indic ation: Allergic Rhinitis - (8869 00);Prin candace: 03/30/20 11 Not Available Not Available [...] on: 02/22/20 09;Indic ation: Hypokale iram - (5576 00);Prin candace: 10/25/19 09 Not Available Not [...] completed Azopt 1 % ophthalm ic drops,allen annamariaion ;Recorde d Status: Recorded on: 02/16/20 14 [...] oral tablet;R ecorded Status: Recorded on: 05/15/19 12:23PM; User: [email or web address] Patiño on: 09/13/19 Not Available Not Available Not Available hydrocodo [...] e 25 mg tablet 1 po qD 04/13 /2022 completed Not Available Not Available Not Available [...] e 50 mcg/actua tion nasal spray,tricia pension [place] 1 spray every day by intranas al [...] Status: Recorded on: 10/14/19 16 9:19AM;U ser: Karen gant Jose on: 01/12/20 16;Print ed: 10/14/19 16 Not [...] 2024 active Not Available Not Available Not Avai lable Mounjaro 5 mg/0.5 mL subcutane ous pen [...] Not Available Vitals Date Recorded Body height Provider Name an d Address Organization Details Last Updated DateTime 02/21/2025 162.56 cm Rosy Sharif [place] - [facility] 1 16:22:38 Date Recorded Body mass index (BMI) Body weight Body temperature Respiratory rate Heart rate Oxygen saturation Systolic And Diastolic Provider Name and Address Organization Details Last Updated DateTime 24.4 kg/m2 35195.1 2 g 97.9 [degF] 18 /min 68 /min 97 % 156/82 mm[Hg] Jillianmaci Gonzalez [place] - [facility] 16:30:36 Social History Question Answer Notes LastModified by Organization Details LastModified Time Tobacco Smoking Status Former Smoker Gisselle Krystian huang, [place] - [facility] 11/23/2023 14:48:13 Do You Have An Advance Directive? Yes [email or web address] Information not available 11/23/2023 Are You Blind Or Do You Have Difficulty Seeing? No Information not available 07/18/2020 Is Blood Transfusion Acceptable In An Emergency? Yes [email or web address] Information not available 07/15/2020 What Is Your Level Of Caffeine Consumption? Occasional Information not available 02/05/2025 How Much Tobacco Do You Chew? None Information not available 03/19/2016 In The 14 Days Before Symptom Onset, Have You Had Close Contact With A Laboratory-confi rmed COVID-19 While That Case Was Ill? No [email or web address] Information not available 08/12/2021 In The 14 Days Before Symptom Onset, Have You Had Close Contact With A Person Who Is Under Investigation For COVID-19 While That Person Was Ill? No [email or web address] Information not available 08/12/2021 Have You Been To An Area Known To Be High Risk For COVID-19? No [email or web address] Information not available 08/12/2021 Are You Deaf Or Do You Have Serious Difficulty Hearing? No Information not available 02/05/2025 What Type Of Diet Are You Following? DIABETIC [email or web address] Information not available 11/23/2023 Which Illicit Or Recreational Drugs Have You Used? None Information not available 03/19/2016 Have You Processed Blood Or Body Fluids From An Ebola Virus Disease Patient Without Appropriate PPE? No [email or web address] Information not available 08/12/2021 Do You Reside In Or Have You Traveled To An Area Where Ebola Virus Transmission Is Active? No [email or web address] Information not available 08/12/2021 What Is The Highest Grade Or Level Of School You Have Completed Or The Highest Degree You Have Received? [id number] Information not available 11/23/2023 How Many Days [...] To Your Family Or Social Situation? No Information not available 08/12/2021 How Hard Is It For You To Pay For The Very Basics Like Food, Housing, Medical Care, And Heating? Not Very Hard [email or web address] Information not available 08/12/2021 What Is The Fluoride Status Of Your Home? Fluoridated [email or web address] Information not available 08/12/2021 When Did You Quit Smoking? 1-5yearssincela catalina [email or web address] Information not available 11/23/2023 Hard Of Hearing Or Deaf In One Or Both Ears? No Information not available 03/19/2016 Have You Recently Or Are You Planning To Travel To An Area With Zika Virus? No [email or web address] Information not available 08/12/2021 Legally Blind In One Or Both Eyes? No Information not available 03/19/2016 Live Alone Or With Others? With Others Information not available 03/19/2016 Last Menstrual Period? 01/11/2020 [email or web address] Information not available 07/15/2020 Do You Have A Medical Power Of Brass Reclaimer? No Information not available 08/12/2021 What Was The Date Of Your Most Recent Tobacco Screening? 08/16/2024 [email or web address] Information not available 08/16/2024 How Many Children Do You Have? 1 Information not available 03/19/2016 Performs Monthly Self-breast Exam? Yes Information not available 06/22/2017 Do You Use Protection During Sex? No Information not available 03/19/2016 Do You Use Protection Against STDs? No [email or web address] Information not available 08/12/2021 What Is Your Relationship Status? [email or web address] Information not available 11/23/2023 Do You Use Your Seat Belt Or Car Seat Routinely? Yes [email or web address] Information not available 11/23/2023 Seat Belts Used Routinely Yes [email or web address] Information not available 06/22/2017 Are You Sexually Active? No [email or web address] Information not available 11/23/2023 Smoke Alarm In Home Yes Information not available 03/19/2016 Do You Have Smoke And Carbon Monoxide Detectors In Your Home? Yes [email or web address] Information not available 08/12/2021 At What Age Did You Start Smoking Tobacco? 61 [email or web address] Information not available 11/23/2023 Are You Passively Exposed To Smoke? No [email or web address] Information not available 11/23/2023 How Much Tobacco Do You Smoke? No Information not available 03/19/2016 General Stress Level Low Information not available 03/19/2016 Do You Use Sunscreen Routinely? Yes [email or web address] Information not available 06/22/2017 Has Tobacco Cessation Counseling Been Provided? Yes [email or web address] Information not available 11/23/2023 On What Date Was Tobacco Cessation Counseling Provided? 11/23/2023 [email or web address] Answered No To The Tobacco Cessation Counseling Provided Question On 06/22/2017. Information not available 11/23/2023 How Many Years Have You Smoked Tobacco? 0 Information not available 03/19/2016 Do You Have Difficulty Walking Or Climbing Stairs? No [email or web address] Information not available 08/11/2020 What Contraceptive Method Was Reported At Start Of This Visit? Vasectomy Information not available 08/12/2021 What Contraceptive Method Was Reported At End Of This Visit? Female Sterilization Information not available 08/12/2021 Do You Want To Talk About Contraception Or Prevention During Your Visit Today? No - I Do Not Want To Talk About Contraception Today Because I Am Here For Something Else [email or web address] Information not available 08/12/2021 How Was The Contraceptive Method Provided? Provided On Site [email or web address] Information not available 08/12/2021 Do You Have Any Future Plans To Get ? No, I Don't Want To Become [email or web address] Information not available 08/12/2021 Sex: Female Functional Status Question Answer Note LastModified by Organizat ion Details LastModified Time Do you or have you ever used smokeless tobacco? Never used smokeless tobacco [email or web address] Information not available 01/26/2019 Are you currently employed? Yes Information not available 03/19/2016 Do you have transportation difficulties? No [email or web address] Information not available 08/12/2021 Are you able to care for yourself independently? Yes Information not available 03/19/2016 Do you have difficulty dressing, bathing, grooming, or toileting? No [email or web address] Information not available 08/11/2020 Do you or have you ever used e-cigarettes or vape? Never used electronic cigarettes [email or web address] Information not available 01/26/2019 What is your exercise level? Occasional Information not available 02/05/2025 Do you use any illicit or recreational drugs? No [email or web address] Information not available 08/12/2021 Do you or have you ever used any other forms of tobacco or nicotine? No Information not available 08/12/2021 What is your level of alcohol consumption? None Information not available 11/23/2023 What is your status? Not [email or web address] Information no t available 08/12/2021 Are you able to walk independently without assistance or assistive devices? YESWOREST [email or web address] Information not available 08/11/2020 Do you have difficulty doing errands alone? No [email or web address] Information not available 08/11/2020 What is your occupation? [employer] Information not available 02/05/2025 Mental Status Question Answer Note LastModified by Organizat ion Details LastModified Time Do you feel stressed (tense, restless, nervous, or anxious, or unable to sleep at night)? [id number] Information not available 11/23/2023 Do you have difficulty concentrating, remembering or making decisions? No [email or web address] Information no t available 08/11/2020 Family History Relationship Description Onset Age of this Age Resolved Age Notes LastModified by Organization Details LastModified Time Father Heart disease Not available 2015 16:03:30 Mother Heart disease Not available 2015 16:03:30 Mother Diabetes mellitus Not available 2015 16:03:36 Brother Heart disease [email or web address] Not available 2017 14:05:35 Unspecified Relation Kidney disease Not available 2023 14:47:28 Medical History Condition Response Diabetes Y Heart Problems Y Arthritis Y Hypercholesterolemia Y Neuropathy Y Hyperlipidemia Y Heart Disease Y Cancer Y Hypertension Y Gynecological History Statement/Question Response [...] Time zoster recombinant 024 cancelled patient objection Michael Perea APRN [address], [place], [address], [place] [facility] 12/12/2023 16:38:17 zoster recombinant 025 cancelled patient objection Michael Perea APRN [address], [place], [address], [place] [facility] 08/16/2024 09:13:03 Influenza, high-dose, trivalent, PF 025 cancelled patient objection Katrinajeremiahcathryn Brit, BOOK TRIMMER [address], [place], [address], [place] [facility] 08/16/2024 09:13:03 Influenza, high-dose, quadrivalent, PF 022 completed [place]y [place] [facility] 03/11/2022 16:24:57 Tdap 016 completed [place] [facility] 03/11/2022 16:24:57 Influenza, high-dose, quadrivalent, PF 022 completed [place] [facility] 03/11/2022 16:24:57 Pneumococcal conjugate PCV 13 019 completed Rosy Kole null, [place] - [facility] 03/11/2022 16:24:57 zoster recombinant 020 completed [place]y [place] [facility] 03/11/2022 16:24:58 Influenza, split virus, quadrivalent, preservative 019 completed Rosy [place] null[place] - [facility] 03/11/2022 16:24:58 Influenza, high-dose, trivalent, PF 019 completed [place] [facility] 03/11/2022 16:24:58 pneumococcal polysaccharide PPV23 completed [place] [facility] 03/11/2022 16:24:58 Influenza, high-dose, quadrivalent, PF 020 completed [place] [facility] 03/11/2022 16:24:58 Influenza, high-dose, quadrivalent, PF 023 completed [place] [facility] 07/05/2023 16:25:26 influenza, unspecified formulation 020 completed Rosy Kole null, [place] - [facility] 12/26/2023 11:44:30 Past Encounters Encounter ID Performer Location Encounter Start Date Encounter Closed Date Diagnosis/Indication Diagnosis SNOMED-CT Code Diagnosis ICD10 Code Diagnosis IMO Codes Diagnosis Note [id number] Eugonda HELEN Perea [address] [address] 02/05/2025 17:33:53 02/05/2025 18:19:31 Thyroid stimulating hormone level above reference range 682258796 R79.89 [id number] Acute left otitis media 071622798 H66.92 [id number] tylenol or motrin as neededanti bioticsif worsen or no improvemen t return [id number] Michael Perea APRN [address] [address] 02/21/2025 16:13:37 02/21/2025 16:58:02 Acute left otitis media 803896296 H66.92 [id number] tylenol or motrin as neededanti bioticsif worsen or no improvemen t return Health Concerns Section Related Observation LastModified by Organization Detai ls LastModified Time None Recorded Concern Status LastModified by Organization Details LastModified Time None Recorded Payers Encounter Date Sequence Insurance Name Policy Number Policy Marcial Covered Member ID Marcial Member ID Guarantor Name 02/21/2025 1 [place]MEDIC[place]PLACEMENT HMO) [id number] [employer] [id number] [employer] Notes Date Note Type Note Provider Name and Address Organization Details Recorded Time 02/21/2025 text/html ROS as noted in the HPI 69 year old female who presents to the office today for a follow up on left ear infection was prescribed amoxicillin on 92-7-77ffjzqolhs to have left ear discomfort Michael Perea APRN [address], [place], [address], [place] [facility] 02/21/2025 16:55:42 OBGyn Episode No OBEpisode recorded.
--- OUTSIDE RECORDS SUMMARY | 2025-03-29 10:57 | XMS_ITS | Continuity of Care Document ---
[facility] Address [address] [place] [address] Care Team Providers Care Check Processing Clerk Name Role Phone VALARIE TOLEDO Referring Provider MICHAEL PEREA Primary Care Provider Assessment No assessment recorded. Plan of Treatment Reminders Order Date Submit Date Provider Last Modified By Organization Details Last Modified Time Details Appointments None recorded. Lab TSH, ultra-sensi tive, serum 2024 025 [place] [facility], [address] [facility], [facility], [place], [address], 13:07:52 Referral None recorded. Procedures None recorded. Surgeries None recorded. Imaging None recorded. Medication Orders amoxicillin 500 mg tablet 2024 025 [facility] [id number], [address] [place] [address], [address], 16:23:16 Patient TargetsNo targets recorded. Patient InstructionsNo instructions recorded. Reason for Referral None Reported. Results Created Date Observation Date Name Description Value Unit Range Abnormal Flag Note LastModifiedBy Organization Detail LastModifiedTime 01/11/2001/11/2025 TSH+F REE T4 TSH 4.600 uIU/m L 0.450- 4.500 above high normal Not Available [facility] [address] [facility], [place], [address], 01/11/2025 12:09:43 01/11/2001/11/2025 TSH+F REE T4 T4,free(dire ct) 1.20 NG/dL 0.82-1 .77 normal Not Available [facility] [address] [place], [address], 01/11/2025 12:09:43 01/11/20 25 01/11/2025 CBC WITH DIFFE RENTI AL/PL ATELE T WBC 5.8 x10e3 /uL 3.4-10 .8 normal Not Available [facility] [address] [place], [address], 01/11/2025 12:09:44 01/11/2001/11/2025 CBC WITH DIFFE RENTI AL/PL ATELE T RBC 4.50 x10e6 /uL 3.77-5 .28 normal Not Available [facility] [address] [place], [address], 01/11/2025 12:09:44 01/11/20 25 01/11/2025 CBC WITH DIFFE RENTI AL/PL ATELE T hemoglobin 14.1 g/dL 11.1-1 5.9 normal Not Available [facility] [address] [place], [address], 01/11/2025 12:09:44 01/11/2001/11/2025 CBC WITH DIFFE RENTI AL/PL ATELE T hematocrit 43.7 % 34.0-4 6.6 normal Not Available [facility] [address] [place], [address], 01/11/2025 12:09:44 01/11/20 25 01/11/2025 CBC WITH DIFFE RENTI AL/PL ATELE T MCV 97 fL 79-97 normal Not Available [facility] [address] [place], [address], 01/11/2025 12:09:44 01/11/20 25 01/11/2025 CBC WITH DIFFE RENTI AL/PL ATELE T MCH 31.3 pg 26.6-3 3.0 normal Not Available [facility] [address] [facility], [place], [address], 01/11/2025 12:09:44 01/11/20 25 01/11/2025 CBC WITH DIFFE RENTI AL/PL ATELE T MCHC 32.3 g/dL 31.5-3 5.7 normal Not Available [facility] [address] [facility], [place], [address], 01/11/2025 12:09:44 01/11/20 25 01/11/2025 CBC WITH DIFFE RENTI AL/PL ATELE T RDW 12.4 % 11.7-1 5.4 Not Available [facility] [address] [facility], [place], [address], 01/11/2025 12:09:44 01/11/20 25 01/11/2025 CBC WITH DIFFE RENTI AL/PL ATELE T platelets 205 x10e3 /uL 150-45 0 normal Not Available [facility] [address] [facility], [place], [address], 01/11/2025 12:09:44 01/11/2001/11/2025 CBC WITH DIFFE RENTI AL/PL ATELE T neutrophils 53 % not estab. normal Not Available [facility] [address] [place], [address], 01/11/2025 12:09:44 01/11/20 25 01/11/2025 CBC WITH DIFFE RENTI AL/PL ATELE T lymphs 33 % not estab. normal Not Available [facility] [address] [place], [address], 01/11/2025 12:09:44 01/11/20 25 01/11/2025 CBC WITH DIFFE RENTI AL/PL ATELE T monocytes 9 % not estab. normal Not Available [facility] [address] [facility], [place], [address], 01/11/2025 12:09:44 01/11/20 25 01/11/2025 CBC WITH DIFFE RENTI AL/PL ATELE T eos 4 % not estab. normal Not Available [facility] [address] [facility], [place], [address], 01/11/2025 12:09:44 01/11/2001/11/2025 CBC WITH DIFFE RENTI AL/PL ATELE T basos 1 % not estab. normal Not Available [facility] [address] [facility], [place], [address], 01/11/2025 12:09:44 01/11/20 25 01/11/2025 CBC WITH DIFFE RENTI AL/PL ATELE T immature cells ELECTROPHYSIOLOGY SCIENTIST Not Available [facility] [address] [facility], [place], [address], 01/11/2025 12:09:44 01/11/20 25 01/11/2025 CBC WITH DIFFE RENTI AL/PL ATELE T neutrophils (absolute) 3.1 x10e3 /uL 1.4-7. 0 normal Not Available [facility] [address] [place], [address], 01/11/2025 12:09:44 01/11/20 25 01/11/2025 CBC WITH DIFFE RENTI AL/PL ATELE T lymphs (absolute) 1.9 x10e3 /uL 0.7-3. 1 normal Not Available [facility] [address] [facility], [place], [address], 01/11/2025 12:09:44 01/11/20 25 01/11/2025 CBC WITH DIFFE RENTI AL/PL ATELE T monocytes(ab solute) 0.5 x10e3 /uL 0.1-0. 9 normal Not Available [facility] [address] [facility], [place], [address], 01/11/2025 12:09:44 01/11/20 25 01/11/2025 CBC WITH DIFFE RENTI AL/PL ATELE T eos (absolute) 0.2 x10e3 /uL 0.0-0. 4 normal Not Available [facility] [address] [facility], [place], [address], 01/11/2025 12:09:44 01/11/20 25 01/11/2025 CBC WITH DIFFE RENTI AL/PL ATELE T baso (absolute) 0.1 x10e3 /uL 0.0-0. 2 normal Not Available [facility] [address] [facility], [place], [address], 01/11/2025 12:09:44 01/11/20 25 01/11/2025 CBC WITH DIFFE RENTI AL/PL ATELE T immature granulocytes 0 % not estab. Not Available [facility] [address] [facility], [place], [address], 01/11/2025 12:09:44 01/11/20 25 01/11/2025 CBC WITH DIFFE RENTI AL/PL ATELE T immature grans (abs) 0.0 x10e3 /uL 0.0-0. 1 Not Available [facility] [address] [facility], [place], [address], 01/11/2025 12:09:44 01/11/20 25 01/11/2025 CBC WITH DIFFE RENTI AL/PL ATELE T NRBC ELECTROPHYSIOLOGY SCIENTIST Not Available [facility] [address] [place], [address], 01/11/2025 12:09:44 01/11/20 25 01/11/2025 CBC WITH DIFFE DOM AL/PL ATELE T hematology comments: ELECTROPHYSIOLOGY SCIENTIST Not Available [facility] [address] [facility], [place], [address], 01/11/2025 12:09:44 01/11/20 25 01/11/2025 COMP. METAB OLIC PANEL (14) glucose 91 mg/dL 70-99 normal Not Available [facility] [address] [facility], [place], [address], 01/11/2025 12:09:44 01/11/20 25 01/11/2025 COMP. METAB OLIC PANEL (14) BUN 22 mg/dL 8-27 normal Not Available [facility] [address] [facility], [place], [address], 01/11/2025 12:09:44 01/11/20 25 01/11/2025 COMP. METAB OLIC PANEL (14) creatinine 0.87 mg/dL 0.57-1 .00 normal Not Available [facility] [address] [facility], [place], [address], 01/11/2025 12:09:44 01/11/20 25 01/11/2025 COMP. METAB OLIC PANEL (14) eGFR 71 mL/mi n/1.7 3 >59 normal Not Available [facility] [address] [facility], [place], [address], 01/11/2025 12:09:44 01/11/20 25 01/11/2025 COMP. METAB OLIC PANEL (14) BUN/creatini ne ratio 25 04- normal Not Available [facility] [address] [facility], [place], [address], 01/11/2025 12:09:44 01/11/20 25 01/11/2025 COMP. METAB OLIC PANEL (14) sodium 140 mmol/ L 134-14 4 normal Not Available [facility] [address] [place], [address], 01/11/2025 12:09:44 01/11/20 25 01/11/2025 COMP. METAB OLIC PANEL (14) potassium 3.9 mmol/ L 3.5-5. 2 normal Not Available [facility] [address] [place], [address], 01/11/2025 12:09:44 01/11/20 25 01/11/2025 COMP. METAB OLIC PANEL (14) chloride 104 mmol/ L 96-106 normal Not Available [facility] [address] [place], [address], 01/11/2025 12:09:44 01/11/20 25 01/11/2025 COMP. METAB OLIC PANEL (14) carbon dioxide, total 22 mmol/ L 20-29 normal Not Available [facility] [address] [place], [address], 01/11/2025 12:09:44 01/11/20 25 01/11/2025 COMP. METAB OLIC PANEL (14) calcium 10.0 mg/dL 8.7-10 .3 normal Not Available [facility] [address] [place], [address], 01/11/2025 12:09:44 01/11/20 25 01/11/2025 COMP. METAB OLIC PANEL (14) protein, total 6.5 g/dL 6.0-8. 5 normal Not Available [facility] [address] [facility] [place], [address], 01/11/2025 12:09:44 01/11/20 25 01/11/2025 COMP. METAB OLIC PANEL (14) albumin 4.2 g/dL 3.8-4. 8 normal Not Available [facility] [address] [facility] [place], [address], 01/11/2025 12:09:44 01/11/20 25 01/11/2025 COMP. METAB OLIC PANEL (14) globulin, total 2.3 g/dL 1.5-4. 5 Not Available [facility] [address] [place], [address], 01/11/2025 12:09:44 01/11/20 25 01/11/2025 COMP. METAB OLIC PANEL (14) bilirubin, total 0.5 mg/dL 0.0-1. 2 normal Not Available [facility] [address] [place], [address], 01/11/2025 12:09:44 01/11/20 25 01/11/2025 COMP. METAB [...] 129 48 - 129 Not Available [facility] [address] [place], [address], 01/11/2025 12:09:44 01/11/20 25 01/11/2025 COMP. METAB OLIC PANEL (14) AST (SGOT) 57 IU/L 0-40 above high normal Not Available [facility] [address] [facility] [place], [address], 01/11/2025 12:09:44 01/11/20 25 01/11/2025 COMP. METAB OLIC PANEL (14) ALT (SGPT) 60 IU/L 0-32 above high normal Not Available [facility] [address] [facility] [place], [address], 01/11/2025 12:09:44 01/11/2001/11/2025 LIPID PANEL cholesterol, total 101 mg/dL 100-19 9 normal Not Available [facility] [address] [facility] [place], [address], 01/11/2025 12:09:45 01/11/20 25 01/11/2025 LIPID PANEL triglyceride s 56 mg/dL 0-149 normal Not Available [facility] [address] [facility] [place], [address], 01/11/2025 12:09:45 01/11/20 25 01/11/2025 LIPID PANEL HDL cholesterol 47 mg/dL >39 normal Not Available [facility] [address] [facility] [place], [address], 01/11/2025 12:09:45 01/11/20 25 01/11/2025 LIPID PANEL VLDL cholesterol demetrius 13 mg/dL 5-40 Not Available [facility] [address] [place], [address], 01/11/2025 12:09:45 01/11/20 25 01/11/2025 LIPID PANEL LDL chol calc ([facility]) 41 mg/dL 0-99 Not Available [facility] [address] [place], [address], 01/11/2025 12:09:45 01/11/20 25 01/11/2025 LIPID PANEL LDL calc comment: ELECTROPHYSIOLOGY SCIENTIST Not Available [facility] [address] [place], [address], 01/11/2025 12:09:45 01/11/20 25 01/11/2025 ALBUM IN/CR EAT RATIO , RANDO M UR creatinine, urine 131.9 mg/dL not estab. normal Not Available [facility] [address] [place], [address], 01/11/2025 12:09:45 01/11/20 25 01/11/2025 ALBUM IN/CR EAT RATIO , RANDO M UR albumin, urine 167.4 ug/mL not estab. Not Available [facility] [address] [place], [address], 01/11/2025 12:09:45 01/11/20 25 01/11/2025 ALBUM IN/CR EAT RATIO , RANDO M UR alb/creat ratio 127 mg/g_ creat 0-29 above high normal Jo-Ann l: 0 - 29 Moder ately incre ased: 30 - 300 Sever pam incre ased: >300 Not Available [facility] [address] [facility], [place], [address], 01/11/2025 12:09:45 01/11/20 25 01/11/2025 HEMOG LOBIN A1C hemoglobin A1C 5.5 % 4.8-5. 6 normal Predi abete s: 5.7 - 6.4 Diabe margi: >6.4 Glyce cassie contr ol for adult s with diabe margi: <7.0 Not Available [facility] [address] [place], [address], 01/11/2025 12:09:46 01/11/20 25 01/11/2025 VITAM IN D, 25-HY DROXY vitamin D, 25-hydroxy 49.2 NG/mL 30.0-1 00.0 Vitam in D defic iency has been defin ed by the Insti tute of Medic ine and an Endoc rine Socie ty pract ice guide line as a level of serum 25-OH vitam in D less than 20 ng/mL (1,2) . The Endoc rine Socie ty went on to [facility] er defin e vitam in D insuf ficie ncy as a level betwe en 21 and 29 ng/mL (2). 1. IOM (Inst itute of Medic ine). 2010. Dieta ry refer ence intak es for calci um and D. Raimundo leung [place]: The [facility] Press . 2. Dara tony MF, Tay aponte [place], Andrew off-F kiran i LUDWIG, et al. Evalu ation , treat ment, and preve ntion of vitam in D defic iency : an Endoc rine Socie ty clini demetrius pract ice guide line. JCEM. 2010; 96(7) :1911 -30. Not Available [facility] [address] [facility], [place], [address], 01/11/2025 12:09:46 02/06/20 25 02/06/2025 TSH TSH 4.150 uIU/m L 0.450- 4.500 normal Not Available [facility] [address] [place], [address], 02/06/2025 13:07:52 02/28/20 25 02/27/2025 - scn dig breas t tomos yn manuel [facility] Name: IDANIA MILLS [employer] [facility] [address] Phys: Francisco J saini NP, Josselin Young [place] [address] : 1955 Age: 69 Sex: F Acct: [id number] Loc: TYLER PHONE #: Exam Date: 2024 Status : REG CLI FAX #: Rad# [id number] Unit# [id number] Admit Date: 2024 EXAMS: CPT CODE: [id number] SCN DIG BREAST TOMOSY N MANUEL [id number] Exam: 3-D screen ing mammog chanel includ [...] [id number] PAGE 1 Signed Report (GIOVANA NUED) [facility] Name: GENE,IDANIA [facility] Medica l [employer] Phys: Francisco J saini ELECTROPHYSIOLOGY SCIENTIST, [place] [address] : 1955 Age: 69 Sex: F Acct: [id number] Loc: G.MAMM PHONE #: [phone] Exam Date: 2024 Status : REG CLI FAX #: Rad# [id number] Unit# [id number] Admit Date: 2024 EXAMS: CPT CODE: [id number] SCN DIG BREAST TOMOSY N MANUEL [id number] Electr onical ly Signed by DENISHA PATEL [...] Cancino Consul ting Provid er: BRIT Cancino [address] [place], [address], 02/27/2025 19:14:15 Result Notes None recorded. Problems Name Problem SNOMED Code Status Onset Date Resolution Date Notes Provider Name and Address Organization Details Recorded Time M ni re's disease 49042861 Active Jillian Stears null, [place] - [facility] 4 16:46:19 Endometr ium thickene d 399223991 Active Jillian Stears [place], [place] - [facility] 16:46:20 History of cardiac catheter ization 44474670472 100 Active Jillian Stears [place], [place] - [facility] 4 16:46:20 Postmeno pausal bleeding 14323714 Active Jillian Stears [place], [place] - [facility] 4 16:46:20 Diabetes mellitus 06582131 Active 2015 Michael Perea, K[employer] ATTENDANT [address], [place], [address] , [place] - [facility] 2 17:29:10 Hypercho lesterol emia 08851472 Active 2015 Michael Perea, [employer] ATTENDANT [address], [place], [address] , [place] [facility] 2 17:29:13 Body mass index 30+ - obesity 448319395 Active 2015 Michael Perea, K[employer] ATTENDANT [address], [place], [address] , [place] - [facility] 2 17:29:08 Benign essentia l hyperten jose rafael 2056854 Active 2015 Michael Perea, [employer] ATTENDANT [address], [place], [address] , [place] - [facility] 2 17:29:04 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 2 20:25:19 Intramur al leiomyom a of uterus 91678380 Completed 201708/13/2021 Removal Reason: s/p hysterec viola Fabienne Carroll, [employer] ATTENDANT [address], [place], [address] , [place] - [facility] 2 20:25:19 Endometr ium thickene d 664194621 Completed 201708/13/2021 Removal Reason: Resolved Fabienne Carroll [employer] [address], [place], [address] , [place] - [facility] 2 20:24:57 Postmeno pausal bleeding 76452335 Completed 201708/13/2021 Removal Reason: resolved Fabienne Carroll [employer] [address], [place], [address] , [place] [facility] 2 20:24:43 Vitamin D deficien cy 67117408 Active 2018 Michael Perea APRN [address], [place], [address] , [place] - [facility] 3 08:59:56 Suspecte d COVID-19 367473306 Completed 201911/25/2020 Removal Reason: Problem marked historic al by user [email or web address] from the COVID-19 watch flag Amarilis Padron RN [address], [place], [address] , [place] - [facility] 1 15:21:33 Adenocar cinoma of uterus 081555586 Active 2020 Michael Perea APRN [address], [place], [address] , [place] - [facility] 2 17:29:00 Spasm of back muscles 110976916 Active 2021 Not Available [facility] 2 20:25:19 Heart disease 10569473 Active 2023 Jillian Gonzalez [facility], [place] - [facility] 4 16:55:33 Coronary arterios clerosis 21228615 Active 2024 Michael Perea APRN [address], [place], [address] , [place] - [facility] 5 09:14:55 Neuropat hy 260338820 Active 2024 Michael Perea APRN [address], [place], [address] , [place] - [facility] 5 08:41:43 Problem Notes None recorded. Procedures Surgical History Date Name Laterality Status Provider Name and Address Organization Details Recorded Time 02/28/20 25 Date of Last Mammogram completed Fabienne Carroll APRN [address], [place], [address], [place] - [facility] 02/27/2025 18:59:33 08/17/19 25 Advance Care Planning completed Rosy Sharif [place] - [facility] 08/16/2024 08:04:03 08/17/19 25 Functional Status Assessed completed Rosy Sharif [place] - [facility] 08/16/2024 08:04:03 01/26/20 24 Most Recent Bone Density completed Fabienne Carroll, [employer] ATTENDANT [address], [place], [address], [place] - [facility] 01/31/2024 08:20:30 11/23/19 24 Date of Last Pap Smear completed Fabienne Carroll APRN [address], [place], [address], [place] - [facility] 11/27/2023 22:02:31 08/17/19 24 [...] [place] - [facility] 07/18/2020 11:18:44 07/19/19 Diastolic B/P 80-89 mm Hg completed Anabell Wilson [place] - [facility] 07/18/2020 11:18:49 07/16/19 Endometrial Biopsy completed Fabienne Carroll APRN [address], [place], [address], [place] [facility] 07/16/2020 09:09:46 07/16/19 Endometrial Biopsy completed Fabienne Carroll APRN [address], [place], [address], [place] [facility] 07/18/2020 08:17:26 05/22/19 Systolic B/P less than 130 mm Hg completed Anabell [place] [facility] 05/22/2020 09:40:12 05/22/19 Diastolic B/P less than 80 mm Hg completed Anabell Rowe [place] [facility] 05/22/2020 09:40:14 02/15/20 20 Systolic B/P less than 130 mm Hg completed Anabell [place] [facility] 02/15/2020 14:29:36 02/15/20 20 Diastolic B/P 80-89 mm Hg completed Anabell [place] [facility] 02/15/2020 14:29:39 01/15/20 20 Diastolic B/P 80-89 mm Hg completed Anabell Rowe [place] [facility] 01/15/2020 13:58:40 01/15/20 20 Systolic B/P 130-139 mm Hg completed Anabell [place] [facility] 01/15/2020 13:58:37 01/15/20 20 Medication Reconcilliation completed Amarilis Padron RN [address], [place], [address], [place] [facility] 01/15/2020 13:50:20 11/23/19 20 Advance Care Planning completed Amarilis Padron RN [address], [place], [address], [place] [facility] 11/23/2019 09:44:35 11/23/19 20 Diastolic B/P 80-89 mm Hg completed Anabell [place] [facility] 11/23/2019 11:21:57 11/23/19 20 Systolic B/P greater than or equal to 140 mm Hg completed Anabell [place] [facility] 11/23/2019 11:21:54 11/23/19 20 Functional Status Assessed completed Amarilis Padron RN [address], [place], [address], [place] [facility] 11/23/2019 09:44:35 10/01/19 20 Diastolic B/P 80-89 mm Hg completed Anabell [place] [facility] 10/01/2019 14:07:50 10/01/19 20 Systolic B/P greater than or equal to 140 mm Hg completed Anabell [place] [facility] 10/01/2019 14:07:47 07/06/19 20 Colposcopy completed Fabienne Carroll APRN [address], [place], [address], [place] [facility] 07/09/2019 05:54:10 07/06/19 20 Colposcopy completed Fabienne Carroll APRN [address], [place], [address], [place] [facility] 07/09/2019 05:56:12 07/06/19 20 Colposcopy completed Fabienne Carroll APRN [address], [place], [address], [place] [facility] 07/16/2019 08:34:41 01/27/20 19 Cervical Polyp Removal completed Fabienne Carroll APRN [address], [place], [address], [place] [facility] 01/29/2019 05:55:21 01/27/20 19 Cervical Polypectomy completed Fabienne Carroll APRN [address], [place], [address], [place] [facility] 01/31/2019 07:01:29 01/26/20 19 Diastolic B/P less than 80 mm Hg completed Anabell [place] [facility] 01/25/2019 08:56:32 01/26/20 19 Systolic B/P 130-139 mm Hg completed Anabell [place] [facility] 01/25/2019 08:56:40 10/25/19 19 Date of Last Colonoscopy completed Fabienne Carroll APRN [address], [place], [address], [place] [facility] 08/12/2021 14:33:00 10/25/19 19 Colonoscopy completed Lee Ann Farah [place] - [facility] 01/25/2019 08:43:31 06/09/19 19 Medication Reconcilliation completed Shahab Teague [place] [facility] 06/09/2018 15:04:13 07/02/19 18 Endometrial Biopsy completed Fabienne Carroll, K[employer] ATTENDANT [address], [place], [address], [place] [facility] 07/03/2017 20:12:25 07/02/19 18 Endometrial Biopsy completed Fabienne Carroll [employer] ATTEND[employer] [address], [place], [address], [place] [facility] 07/06/2017 16:09:43 08/15/19 14 Eye Surgery completed Jillian Lisa [place] - [facility] 02/05/2025 17:52:29 06/16/19 12 Cervical Polypectomy completed Fabienne Carroll APRN [address], [place], [address], [place] [facility] 06/22/2017 14:27:05 01/30/19 74 Caesarean Section completed Gisselle Boland [place] - [facility] 06/22/2017 14:07:55 Colonoscopy completed Gisselle Krystian [place] - [facility] 06/22/2017 14:09:16 cardiac catheterization completed Jillian Gonzalez [place] - [facility] 09/27/2023 16:56:11 Imaging Results None [...] himese;I ndicatio n: Allergic Conjunct ivitis - (9118 40);Prin candace: 12/12/19 10 Not Available Not [...] on: 06/28/19 12;Indic ation: Allergic Rhinitis - (0630 00);Prin candace: 03/30/20 11 Not Available Not [...] on: 02/22/20 09;Indic ation: Hypokale iram - (.2768 );Prin candace: 10/25/19 09 Not Available Not Available [...] Status: Recorded on: 05/15/19 15 12:23PM; User: himese;E st. Completi on: 09/13/19 15 Not Available Not [...] e 50 mcg/actua tion nasal spray,[employer] [place] 1 spray every day by intranas al [...] Disconti nued on: 01/31/20 15 3:51PM;U ser: Maribell gant Completi on: 05/03/19 15;Print ed: 04/23/20 14 [...] on: 10/14/19 16 9:19AM;U ser: Karen gant Completi on: 01/12/20 16;Print ed: 10/14/19 16 Not [...] Not Available Vitals Date Recorded Body height Respiratory rate Body mass index (BMI) Body weight Heart rate Oxygen saturation Body temperature Systolic And Diastolic Provider Name and Address Organization Details Last Updated DateTime 162.56 cm 18 /min 24.7 kg/m2 86229.3 g 70 /min 98 % 98 [degF] 180/88 mm[Hg] Jillianmaci Lockes [place] - [facility] 17:56:51 Date Recorded Body height Provider Name an d Address Organization Details Last Updated DateTime 02/21/2025 162.56 cm Rosy Sharif [place] - [facility] 1 16:22:38 Date Recorded Body mass index (BMI) Body weight Body temperature Respiratory rate Heart rate Oxygen saturation Systolic And Diastolic Provider Name and Address Organization Details Last Updated DateTime 24.4 kg/m2 69429.1 2 g 97.9 [degF] 18 /min 68 /min 97 % 156/82 mm[Hg] Jillian Lock[place] - [facility] 16:30:36 Social History Question Answer Notes LastModified by Organization Details LastModified Time Tobacco Smoking Status Former Smoker Gisselle [place] - [facility] 11/23/2023 14:48:13 Do You Have An Advance Directive? Yes [email or web address] Information not available 11/23/2023 Are You Blind Or Do You Have Difficulty Seeing? No Information not available 07/18/2020 Is Blood Transfusion Acceptable In An Emergency? Yes [email or web address] Information not available 07/15/2020 What Is Your Level Of Caffeine Consumption? Occasional Information not available 02/05/2025 How Much Tobacco Do You Chew? None Information not available 03/19/2016 In The 14 Days Before Symptom Onset, Have You Had Close Contact With A Laboratory-confi rmed COVID-19 While That Case Was Ill? No [email or web address] Information not available 08/12/2021 In The 14 Days Before Symptom Onset, Have You Had Close Contact With A Person Who Is Under Investigation For COVID-19 While That Person Was Ill? No [email or web address] Information not available 08/12/2021 Have You Been To An Area Known To Be High Risk For COVID-19? No [email or web address] Information not available 08/12/2021 Are You Deaf Or Do You Have Serious Difficulty Hearing? No Information not available 02/05/2025 What Type Of Diet Are You Following? DIABETIC [email or web address] Information not available 11/23/2023 Which Illicit Or Recreational Drugs Have You Used? None Information not available 03/19/2016 Have You Processed Blood Or Body Fluids From An Ebola Virus Disease Patient Without Appropriate PPE? No [email or web address] Information not available 08/12/2021 Do You Reside In Or Have You Traveled To An Area Where Ebola Virus Transmission Is Active? No [email or web address] Information not available 08/12/2021 What Is The Highest Grade Or Level Of School You Have Completed Or The Highest Degree You Have Received? [id number] [email or web address] Information not available 11/23/2023 How Many Days [...] To Your Family Or Social Situation? No [email or web address] Information not available 08/12/2021 How Hard Is It For You To Pay For The Very Basics Like Food, Housing, Medical Care, And Heating? Not Very Hard [email or web address] Information not available 08/12/2021 What Is The Fluoride Status Of Your Home? Fluoridated [email or web address] Information not available 08/12/2021 When Did You Quit Smoking? 1-5yearssinselina arnold [email or web address] Information not available 11/23/2023 Hard Of Hearing Or Deaf In One Or Both Ears? No Information not available 03/19/2016 Have You Recently Or Are You Planning To Travel To An Area With Zika Virus? No [email or web address] Information not available 08/12/2021 Legally Blind In One Or Both Eyes? No Information not available 03/19/2016 Live Alone Or With Others? With Others Information not available 03/19/2016 Last Menstrual Period? 01/11/2020 Information not available 07/15/2020 Do You Have A Medical Power Of Evp Business Development? No [email or web address] Information not available 08/12/2021 What Was The Date Of Your Most Recent Tobacco Screening? 08/16/2024 [email or web address] Information not available 08/16/2024 How Many Children Do You Have? 1 Information not available 03/19/2016 Performs Monthly Self-breast Exam? Yes [email or web address] Information not available 06/22/2017 Do You Use Protection During Sex? No Information not available 03/19/2016 Do You Use Protection Against STDs? No [email or web address] Information not available 08/12/2021 What Is Your Relationship Status? [email or web address] Information not available 11/23/2023 Do You Use Your Seat Belt Or Car Seat Routinely? Yes [email or web address] Information not available 11/23/2023 Seat Belts Used Routinely Yes [email or web address] Information not available 06/22/2017 Are You Sexually Active? No [email or web address] Information not available 11/23/2023 Smoke Alarm In Home Yes Information not available 03/19/2016 Do You Have Smoke And Carbon Monoxide Detectors In Your Home? Yes [email or web address] Information not available 08/12/2021 At What Age Did You Start Smoking Tobacco? 61 [email or web address] Information not available 11/23/2023 Are You Passively Exposed To Smoke? No [email or web address] Information not available 11/23/2023 How Much Tobacco Do You Smoke? No Information not available 03/19/2016 General Stress Level Low Information not available 03/19/2016 Do You Use Sunscreen Routinely? Yes Information not available 06/22/2017 Has Tobacco Cessation Counseling Been Provided? Yes [email or web address] Information not available 11/23/2023 On What Date Was Tobacco Cessation Counseling Provided? 11/23/2023 [email or web address] Answered No To The Tobacco Cessation Counseling Provided Question On 06/22/2017. [email or web address] Information not available 11/23/2023 How Many Years Have You Smoked Tobacco? 0 Information not available 03/19/2016 Do You Have Difficulty Walking Or Climbing Stairs? No [email or web address] Information not available 08/11/2020 What Contraceptive Method Was Reported At Start Of This Visit? Vasectomy Information not available 08/12/2021 What Contraceptive Method Was Reported At End Of This Visit? Female Sterilization [email or web address] Information not available 08/12/2021 Do You Want To Talk About Contraception Or Prevention During Your Visit Today? No - I Do Not Want To Talk About Contraception Today Because I Am Here For Something Else [email or web address] Information not available 08/12/2021 How Was The Contraceptive Method Provided? Provided On Site Information not available 08/12/2021 Do You Have Any Future Plans To Get ? No, I Don't Want To Become Information not available 08/12/2021 Sex: Female Functional Status Question Answer Note LastModified by Organizat ion Details LastModified Time Do you or have you ever used smokeless tobacco? Never used smokeless tobacco [email or web address] Information not available 01/26/2019 Are you currently employed? Yes Information not available 03/19/2016 Do you have transportation difficulties? No [email or web address] Information not available 08/12/2021 Are you able to care for yourself independently? Yes Information not available 03/19/2016 Do you have difficulty dressing, bathing, grooming, or toileting? No [email or web address] Information not available 08/11/2020 Do you or have you ever used e-cigarettes or vape? Never used electronic cigarettes [email or web address] Information not available 01/26/2019 What is your exercise level? Occasional Information not available 02/05/2025 Do you use any illicit or recreational drugs? No [email or web address] Information not available 08/12/2021 Do you or have you ever used any other forms of tobacco or nicotine? No [email or web address] Information not available 08/12/2021 What is your level of alcohol consumption? None [email or web address] Information not available 11/23/2023 What is your status? Not [email or web address] Information no t available 08/12/2021 Are you able to walk independently without assistance or assistive devices? YESWOREST [email or web address] Information not available 08/11/2020 Do you have difficulty doing errands alone? No [email or web address] Information not available 08/11/2020 What is your occupation? [employer] Information not available 02/05/2025 Mental Status Question Answer Note LastModified by Organizat ion Details LastModified Time Do you feel stressed (tense, restless, nervous, or anxious, or unable to sleep at night)? [id number] [email or web address] Information not available 11/23/2023 Do you have difficulty concentrating, remembering or making decisions? No [email or web address] Information no t available 08/11/2020 Family History Relationship Description Onset Age of this Age Resolved Age Notes LastModified by Organization Details LastModified Time Father Heart disease Not available 2015 16:03:30 Mother Heart disease Not available 2015 16:03:30 Mother Diabetes mellitus Not available 2015 16:03:36 Brother Heart disease [email or web address] Not available 2017 14:05:35 Unspecified Relation Kidney disease Not available 2023 14:47:28 Medical History Condition Response Arthritis Y Cancer Y Hypercholesterolemia Y Heart Problems Y Diabetes Y Hyperlipidemia Y Neuropathy Y Heart Disease Y Hypertension Y Gynecological History Statement/Question Response [...] cancelled patient objection Michael Perea APRN [address], [place], [address], [place] [facility] 12/12/2023 16:38:17 zoster recombinant 025 cancelled patient objection Michael Perea APRN [address], [place], [address], [place] [facility] 08/16/2024 09:13:03 Influenza, high-dose, trivalent, PF 025 cancelled patient objection Michael Perea APRN [address], [place], [address], [place] [facility] 08/16/2024 09:13:03 Influenza, high-dose, quadrivalent, PF 022 completed Rosy Sharif null, [place] [facility] 03/11/2022 16:24:57 Tdap 016 completed Rosy Shar[place] [facility] 03/11/2022 16:24:57 Influenza, high-dose, quadrivalent, PF 022 completed Rosy Shar[place] [facility] 03/11/2022 16:24:57 Pneumococcal conjugate PCV 13 019 completed Rosy Kole [place], [place] [facility] 03/11/2022 16:24:57 zoster recombinant completed Rosy Sharif [place] [facility] 03/11/2022 16:24:58 Influenza, split virus, quadrivalent, preservative 019 completed Rosy Sharif [place] [facility] 03/11/2022 16:24:58 Influenza, high-dose, trivalent, PF 019 completed Rosy [place]ole [place] [facility] 03/11/2022 16:24:58 pneumococcal polysaccharide PPV23 completed Rosy Kole [place] [facility] 03/11/2022 16:24:58 Influenza, high-dose, quadrivalent, PF 020 completed Rosy Kole [place] [facility] 03/11/2022 16:24:58 Influenza, high-dose, quadrivalent, PF 023 completed Rosy [place]ole [place] [facility] 07/05/2023 16:25:26 influenza, unspecified formulation 020 completed Rosy Kole [place], [place] [facility] 12/26/2023 11:44:30 Past Encounters Encounter ID Performer Location Encounter Start Date Encounter Closed Date Diagnosis/Indication Diagnosis SNOMED-CT Code Diagnosis ICD10 Code Diagnosis IMO Codes Diagnosis Note [id number] Michael Perea APRN [address] [address] 01/10/2025 07:50:00 01/10/2025 09:40:38 Normal weight 73370416 Z68.24 [id number] Body mass index 20-24 - normal 882118875 Z68.24 [id number] Benign ess ential hypertension 6266438 I10 Coronary arteriosclerosis 09342446 I25.10 [id number] Hypercholesterolemia 136 40971 E78.00 Diabetes mellitus 305623 09 E11.9 labscontin ue diet and meds Vitamin D deficiency 347 84336 E55.9 [id number] Michael Perea APRN [address] [address] 02/05/2025 17:33:53 02/05/2025 18:19:31 Thyroid stimulating hormone level above reference range 083840612 R79.89 071777 Acute left otitis media 896808574 H66.92 9727943 tylenol or motrin as neededanti bioticsif worsen or no improvemen t return Health Concerns Section Related Observation LastModified by Organization Detai ls LastModified Time None Recorded Concern Status LastModified by Organization Details LastModified Time None Recorded Payers Encounter Date Sequence Insurance Name Policy Number Policy Marcial Covered Member ID Marcial Member ID Guarantor Name 02/05/2025 1 [place]: [place] BC[employer] OF [facility] MEDIBLUE PLUS (MEDICARE REPLACEMENT HMO) [id number] [employer] [id number] [employer] Notes Date Note Type Note Provider Name and Address Organization Details Recorded Time 02/05/2025 text/html ROS as noted in the HPI 69 year old female who presents to the office today with concerns ofcan't hear out of left ear, used new ear buds and then had ear pain, sounds like air blowing in itdiscuss lab results, wants to go ahead and have tsh/t4 rechecked due to her glaucoma being worse and she thinks its related to tyroid Michael Perea APRN [address], [place], [address], [place] [facility] 03/04/2025 16:06:40 02/21/2025 text/html ROS as noted in the HPI 69 year old female who presents to the office today for a follow up on left ear infection was prescribed amoxicillin on [id number] to have left ear discomfort Michael Perea APRN [address], [place], [address], [place] [facility] 02/21/2025 16:55:42 OBGyn Episode No OBEpisode recorded.
--- OUTSIDE RECORDS SUMMARY | 2025-03-29 10:57 | XMS_ITS | Clinical Summary ---
Author Organization [facility] Address [address] [place] [address] Care Team Providers Care Network Coordinator Name Role Phone Bhupinder Guzmán APRN Primary Care Provider + [phone] Allergies No known active allergies Medications latanoprost (XALATAN) 0.005 % ophthalmic solution Administer 1 drop to both eyes Every Night. Active aspirin 81 MG oral suspension Take 81 mL by mouth 1 (One) Time. 3 Active dorzolamide-timolo l (COSOPT) 2-0.5 % ophthalmic solution 4 Active atorvastatin (LIPITOR) 40 MG tablet Take 1 tablet by mouth Every Night. 4 Active clopidogrel (PLAVIX) 75 MG tablet Take 1 tablet by mouth Daily. 4 Active atenolol (TENORMIN) 50 MG tablet 1 tablet qd 4 Active dorzolamide (TRUSOPT) 2 % ophthalmic solution THREE TIMES DAILY Active cyclobenzaprine (FLEXERIL) 5 MG tablet Take 1 tablet by mouth 2 (Two) Times a Day As Needed for Muscle Spasms. 60 tablet 5 4 Active traMADol (ULTRAM) 50 MG tabletIndications: Primary osteoarthritis involving multiple joints Take 1 tablet by mouth Every 6 (Six) Hours. 120 tablet 5 4 Active naproxen sodium (ANAPROX) 550 MG tablet Take 1 tablet by mouth 2 (Two) Times a Day As Needed for Mild Pain. Stopped for surgery 60 tablet 5 4 Active LOSARTAN POTASSIUM PO 100 mg. 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 In general, low dose daily aspirin for the treatment or prevention of heart disease or stroke is safe to take. Acetaminophen (Tylenol) is generally safe to take as directed for headaches, cramps or other aches and pains or fever reduction. Encounter for therapeutic drug monitoring 2023 Assessment & Plan (04/18/2024 3:51 PM EST): * Tramadol 50 mg PO every 6 hours PRN * Controlled substance agreement discussed and signed 10/26/23 Check SIXTO and Drug screen as required. Drug screen ordered today Assessment & Plan (10/26/2023 4:04 PM EDT): * Tramadol 50 mg PO every 6 hours PRN * Controlled substance agreement discussed and signed 10/26/23 Check SIXTO and Drug screen as required. Drug screen ordered today Assessment & Plan (10/26/2023 4:04 PM EDT): * Naproxen 550 mg PO BID for joint pain PRN Do not take over-the counter anti-inflammatory medicines, such as ibuprofen or naproxen (Advil, Motrin, Aleve and others), as they may cause problems when combined with your prescription medications. In general, low dose daily aspirin for the treatment or prevention of heart disease or stroke is safe to take. Acetaminophen (Tylenol) is generally safe to take as directed for headaches, cramps or other aches and pains or fever reduction. Osteoarthritis 06/08/2023 Assessment & Plan (04/18/2024 4:00 PM EST): * Medications/treatments/interventions tried include: Tylenol, ibuprofen, diclofenac gel, cyclobenzaprine, glucosamine chondroitin, steroid injection, steroid taper, physical therapy, She has seen a chiropractor, naproxen, tramadol, gabapentin, she has seen neurosurgery 1. Tylenol PRN is ok as directed 2. Weight loss would be helpful 3. Continue naproxen BID PRN. 4. She takes cyclobenzaprine PRN. 5. She has tried supplements like glucosamine/chondroitin 6. She has done some physical therapy 7. She has seen a chiropractor 8. Check labs today 9. Refill medications 10. Follow up in 6 months 11. Continue tramadol PRN 12. She has taken gabapentin for neuropathic pain. 13. Today she has shoulder pain. See below. 14. She has seen neurosurgery. Assessment & Plan (10/26/2023 4:13 PM EDT): * Medications/treatments/interventions tried include: Tylenol, ibuprofen, diclofenac gel, cyclobenzaprine, glucosamine chondroitin, steroid injection, steroid taper, physical therapy, She has seen a chiropractor, naproxen, tramadol, gabapentin 1. Tylenol PRN is ok as directed 2. Weight loss would be helpful 3. Continue naproxen BID PRN. 4. She takes cyclobenzaprine PRN. 5. She has tried supplements like glucosamine/chondroitin 6. She has done some physical therapy 7. She has seen a chiropractor 8. Check labs today 9. Refill medications 10. Follow up in 6 months 11. Continue tramadol PRN 12. She has taken gabapentin for neuropathic pain. Sensorineural hearing loss 11/19/2022 Suspected glaucoma of both eyes 09/07/2021 Secondary cataract of both eyes 09/07/2021 Spasm of back muscles 05/27/2021 Vitamin D deficiency 01/25/2019 Postmenopausal bleeding 07/25/2017 Intramural leiomyoma of uterus 07/03/2017 Benign essential hypertension 03/24/2016 Diabetes mellitus 03/19/2016 Hypercholesterolemia 03/19/2016 Obesity with body mass index 30 or greater 03/19 Adenocarcinoma of uterus Immunizations Immunization Administration Dates Next Due Fluzone High-Dose 65+YRS 01/25/2019 Influenza, Unspecified 01/21/2020 Pneumococcal Conjugate 13-Valent (PCV13) 019 Pneumococcal Polysaccharide (PPSV23) 02/15/2020 Shingrix 11/23/2019 Tdap 03/19/2016 Family History Medical History Relation Name Comments Alcohol abuse Brother 1 Aníbal Cancer Brother 1 Aníbal Diabetes Brother 1 Aníbal Heart disease Brother 1 Aníbal Hypertension Brother 1 Aníbal Hypertension Brother 2 Yousif Heart disease Father Matthew Hypertension Father Matthew Diabetes Mother Nila Heart disease Mother Nila Hypertension Mother Nila Kidney disease Mother Nila Stroke Mother Nila Heart disease Sister Yina Breast cancer Neg Hx Colon cancer Neg Hx Melanoma Neg Hx Ovarian cancer Neg Hx Prostate cancer Neg Hx Uterine cancer Neg Hx Relation Name Status Comments Brother 1 Aníbal Brother 2 Yousif Father Matthew Mother Nila Sister Yina Social History Tobacco Use Types Packs/Day Years Used Date Smoking Tobacco: Former Cigarettes 0.3 6.5 0 05/03/2017 - 12/14/2022 Cigars Passive Smoke Exposure: Past Smokeless Tobacco: Never Tobacco Cessation:Counseling Given: Not Answered Comments:smokes occasional cigar Alcohol Use Standard Drinks/Week Comments Not Currently 0 (1 standard drink = 0.6 oz pur e alcohol) Very rately PHQ-2 Answer Date Recorded Retired Total Score 0 12/08/2020 Comments No Sex and Gender Information Value Date Recorded Sex Assigned at Female 07/10/2024 10:42 AM EDT Legal Sex Female 10:01 AM EDT Gender Identity Not on file Sexual Orientation Not on file Last Filed Vital Signs Vital Sign Reading Time Taken Comments Blood Pressure 150/82 07/17/2024 2:01 PM EDT taken manually twice Pulse 77 04/18/2024 3:28 PM EST Temperature 36.3 C (97.4 F) 04/18/2024 3:28 PM EST Respiratory Rate 16 01/08/2021 2:00 PM EDT Oxygen Saturation 95% 06/08/2023 3:0 2 PM EST Inhaled Oxygen Concentration - - Weight 67.7 kg (149 lb 3.2 oz) 07/17/2024 1:36 PM EDT Height 162.6 cm (5' 4 ) 07/17/2024 1:36 PM EDT Body Mass Index 25.61 07/17/2024 1:36 PM EDT Plan of Treatment Upcoming Encounters Date Type Department Care Team (Late st Contact Info) Description 06/12/2025 2:30 PM EST Office Visit [facility] [address] [facility] [address] [place] [address] Albertina Small APRN [address] [facility] [address] [place] [address] Health Maintenance Due Date Last Done Comments DXA SCAN 1955 LIPID PANEL 1955 COVID-19 Vaccine (#1) 1958 DIABETIC EYE EXAM 09/04/1963 DIABETIC FOOT EXAM 09/04/1963 URINE MICROALBUMIN-CREATININ E RATIO (uACR) 09/04/1963 MAMMOGRAM 1993 COLOGUARD 1998 COLON CANCER SCREENING 5 YEA R SIGMOIDOSCOPY 1998 CT COLONOGRAPHY 1998 FECAL OCCULT BLOOD TEST 1998 FIT Testing (1 year) 1998 ZOSTER VACCINE (2 of 2) 01/18/2020 11/23/2019 ANNUAL WELLNESS VISIT 12/01/2020 HEPATITIS C SCREENING 12/01/2020 HEMOGLOBIN A1C 07/15/2021 01/15/2021, 12/17/2020 INFLUENZA VACCINE 11/30/2024 02/11/2023, , 05/27/2021, Additional history exists TDAP/TD VACCINES (2 - Td or Tdap) 03/19/2026 016 COLONOSCOPY 08/05/2030 08/05/2020, 10/24/2018 COLORECTAL CANCER SCREENING 08/05/2030 Pneumococcal Vaccine 50+ Completed 02/15/2020, 01/01 Medical Devices Implanted Type Area Registrar Assistant Device Identifier Shelf Expiration Date Model / Serial / Lot Lens Implants Procedures Procedure Name Priority Date/Time Associated Diagnosis Comments HEMOGLOBIN A1C Routine 12/17/2020 1:51 PM EDT Other specified diabetes mellitus without complications (CMS/HCC) Adenocarcinoma of uterus from Last 3 Months or Most Recently Relevant to Health Maintenance Results * (ABNORMAL) Hemoglobin A1c (12/17/2020 1:51 PM EDT) Hemoglobin A1C 8.10(H) 4.80 - 5.60 % 12/17/2020 2:39 PM EDT [facility] Blood Venipuncture / Unknown 12/17/2020 1:51 PM EDT 12/17/2020 2:06 PM EDT Narrative [facility] - 12/17/2020 2:39 PM EDT Hemoglobin A1C Ranges: Increased Risk for Diabetes 5.7% to 6.4% Diabetes >= 6.5% Diabetic Goal < 7.0% Aminta Boyce MD LAB BLOOD ORDERABLES Final Re sult [facility]
[address] [place] [address], from Last 3 Months or Most Recently Relevant to Health Maintenance Insurance [employer] HMO Advance Directives Documents on File Type Date Recorded Patient Insole Bottom Filler Expl anation LIVING WILL - SCAN 06/09/2023 2:23 PM STAR Azar WILL DIRECTIVE, [facility], 08/19/2022 Care Teams Network Coordinator Relationship Specialty Start Date End Date Bhupinder Guzmán APRN [address] [place] [address] [place] [address] PCP - General Family Medicine 02/24/23
--- OUTSIDE RECORDS SUMMARY | 2025-03-29 10:57 | XMS_ITS | Data Portability ---
Author Organization 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 OPERATIVE NOTE: June, Preoperative diagnosis: 1. Bilateral Chronic adhesive otitis media With atelectasis 2. Bilateral eustachian tube dysfunction Postoperative diagnosis: Same Operative procedure: 1. Bilateral Endoscopic Eustachian Tuboplasties with balloon dilatation 2. Bilateral myringotomies and placement of Rube tympanostomy tubes Surgeon: Hal Miranda MD Anesthesia: General endotracheal Procedure detail: After general trach anesthesia was achieved, the right ear was addressed. Atelectasis was noted. A Myringotomy incision was performed on the right ear under microscopy and a Rube tympanostomy was placed after fluid was evacuated. Into the contralateral left ear a Rube tympanostomy was also placed Via myringotomy incision and fluid was evacuated. Atelectasis was noted bilaterally. Next the eustachian torus tubarius were examined bilaterally endoscopically with a 0 degree endoscope. The left side was initially addressed. The torus tubarius on the right side was examined and dilated for 2 minutes with a Justino balloon dilator. Slight bleeding was noted. Into the contralateral right Nasal chamber, the eustachian tube was examined Endoscopically and cannulated with a Justino balloon dilator. This was dilated for 2 minutes atraumatically. There were no complications. She was then awakened and taken to PACU in stable condition. [facility], [facility] Not available 06/13/2023 13:06:25 Plan of Treatment Reminders Order Date Submit Date Provider Last Modified By Organization Details Last Modified Time Details Appointments None recorded. Lab None recorded. Referral None recorded. Procedures None recorded. Surgeries None recorded. Imaging None recorded. Medication Orders ondansetr on 4 mg disintegr ating tablet 2022 023 [id number], [address] , [place], [address], 3 17:43:16 rizatript an 10 mg disintegr ating tablet 2022 023 [facility] [id number], [address] , [place], [address], 3 17:43:16 Patient TargetsNo targets recorded. Patient Instructions Encounter Date Encounter Id Patient Instructions Last Modified By Organization Details Last Modified Time 04/05/2023 [id number] 1. Audiogram obtained in office today. Results discussed with patient. 2. MRI of brain ordered in office today. 3. Rx- Ondansetron 4 mg disintegrating tablet. Take as needed. 4. Rx- Rizatriptan 10 mg disintegrating tablet. Take as needed. 5. Follow up with results. chico Not available 04/05/2023 10:49:48 05/30/2023 [id number] 1. Reviewed and discussed results of MRI of brain from 05/04/2023 with patient. 2. Discussed BMT (Rube tube) and bilateral endoscopic ET dilation. Full risks, complications, and benefits of operative versus non-operative intervention have been thoroughly discussed. Understanding was expressed, informed consent given, and we will proceed with the discussed operative treatment plan. There were no questions for me at the end of the office visit. 3. Follow up postoperatively. chico Not available 05/30/2023 17:03:13 While she did no t have success with the unilateral tympanostomy tube placement on the left ear, she has bilateral pathology in her middle ears and mastoids. 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 Sodium restriction is recommended. This is a condition which can last 8 years and she is already had symptoms for 2 years. Understands that bilateral ear tubes and eustachian eustachian tube dilation may not improve the vertigo. pee Not available 05/30/2023 17:16:22 07/07/2023 [id number] 1. Audiogram obtained in office today. Results discussed with patient. 2. Advised pt tinnitus and dizziness likely will not be cured with ear tubes 3. Suggest patient administer sweet/olive oil to bilateral ears to help with cerumen impaction. 4.F/u in 6 months [email or web address] Not available 07/07/2023 13:45:58 She states that she still has dizziness in her head as well as tinnitus. Again discussed this was not the normal oral surgery and this is not likely to be improved. Goal of surgery was to improve the chronic effusions and eustachian tube dysfunction as well as chronic infections. Tinnitus control may involve amplification. pee Not available 07/07/2023 18:44:31 Reason for Referral None Reported. Results Created Date Observation Date Name Description Value Unit Range Abnormal Flag Note LastModifiedBy Organization Detail LastModifiedTime 04/05/20 23 04/05/2023 audio gram No observ ation record ed. BARCODE Not Available 2022 15:27:49 05/31/19 24 05/11/2023 MRI, brain , w/wo contr ast No observ ation record ed. BARCODE Not Available 2023 08:25:41 06/08/19 24 06/08/2023 elect rocar diogr am No observ ation record ed. [email or web address] Not Available 2023 13:12:10 06/10/19 24 06/08/2023 elect rocar diogr am No observ ation record ed. BARCODE Not Available 2023 08:41:12 Result Notes None recorded. Problems No Known Problems Procedures Surgical History Date Name Laterality Status Provider Name and Address Organization Details Recorded Time 4 eustachian tuboplasty completed HAL MIRANDA MD [address] [place], [address], [facility] 06/13/2023 16:56:47 3 Tympanogram completed VEENA PURVIS AUD [address] [place], [address], [facility] 04/05/2023 09:39:28 3 Audiogram completed VEENA PURVIS AUD [address] [place], [address], [facility] 04/05/2023 09:39:27 1 Hysterectomy/bl adder repair completed [facility] 04/05/2023 10:26:48 Cataract surg w/iol 1 stage completed [facility] 04/05/2023 10:26:33 myringotomy and insertion of short-term tympanic ventilation tube completed HAL MIRANDA MD [address] [place], [address], [facility] 05/30/2023 17:16:54 Imaging Results None recorded. Procedure Notes None recorded. Medical Equipment None Reported. Allergies No known drug allergies Medications Name Sig Start Date Stop Date Status Note LastModified by Organization Details LastModified Time latanoprost 0.005 % eye drops active Not Available Not Available Not Available metformin 500 mg tablet active Not Available Not Available Not Available atenolol 100 mg tablet active Not Available Not Available Not Available prednisone 5 mg tablet active Not Available Not Available Not Available losartan 100 mg-hydrochl orothiazide 25 mg tablet active Not Available Not Available Not Available OneTouch Ultra Test strips active Not Available Not Available Not Available simvastatin 5 mg tablet active Not Available Not Available Not Available rizatriptan 10 mg disintegrat ing tablet Take 1 tablet per day as needed. Up to 8 tablets in 1 month. 2022 active Not Available Not Available Not Avai lable naproxen sodium 550 mg tablet active Not Available Not Available No t Available dorzolamide 22.3 mg-timolol 6.8 mg/mL eye drops active Not Available Not Available No t Available gabapentin 100 mg capsule active Not Available Not Available Not Available methylpredn isolone 4 mg tablets in a dose pack 05/30 completed Not Available Not Available Not Available ondansetron 4 mg disintegrat ing tablet Place 1 tablet every 4-6 hours by transling ual route. 2022 active Not Available Not Available Not Avai lable amoxicillin 875 mg-bryanna m clavulanate 125 mg tablet 04/05 completed Not Available Not Available Not Available cyclobenzap rine 5 mg tablet active Not Available Not Available Not Available aspirin active Not Available Not Avail able Not Available tramadol active Not Available Not Avai lable Not Available OneTouch Delica Plus Lancet 33 gauge active Not Available Not Available Not Available Mounjaro active Not Available Not Avai lable Not Available Vitals Date Recorded Body height Body mass index (BMI) Body weight Body temperature Heart rate Systolic And Diastolic Provider Name and Address Organization Details Last Updated DateTime 4 162.56 cm 32.4 kg/m2 02412.1 7 g 97.9 [degF] 75 /min 155/86 mm[Hg] Kita Ignacio [facility] 4 16:32:20 Date Recorded Body height Body mass index (BMI) Body weight Body temperature Heart rate Systolic And Diastolic Provider Name and Address Organization Details Last Updated DateTime 4 162.56 cm 31.9 kg/m2 09148.8 8 g 97.5 [degF] 75 /min 158/90 mm[Hg] Jake Yvon [facility] 4 13:23:21 Date Recorded Heart rate Body temperature Body weight Body mass index (BMI) Body height Systolic And Diastolic Provider Name and Address Organization Details Last Updated DateTime 3 72 /min 98 [degF] 87559.9 g 32 kg/m2 162.56 cm 153/72 mm[Hg] Flavio Atkinsondulce [facility] 3 10:23:29 Social History None recorded. Functional Status None recorded. Mental Status None recorded. Family History Nothing Reported. Medical History No medical history recorded. Gynecological HistoryNo gynecological history recorded. Obstetrics History GPAL:G 0 P 0 0 0 0 Past Encounters Encounter ID Performer Location Encounter Start Date Encounter Closed Date Diagnosis/Indication Diagnosis SNOMED-CT Code Diagnosis ICD10 Code Diagnosis IMO Codes Diagnosis Note [id number] HAL MIRANDA MD [place] [facility] [address] [place] [address] 04/05/2023 09:17:46 04/05/2023 11:03:16 Mixed conductive and sensorineural hearing loss, bilateral 957747040 H90.6 Dizziness 748648673 R42 - Consider hydrops or Meniere's. Perforatio n of left tympanic membrane 8170720126 366115 H72.92 Nausea 615129258 R11.0 Dysfunctio n of bilateral eustachian tubes 4354119172 758706 H69.93 History of concussion injury of brain 7062162861 4635634 Z87.820 Migraine 54439774 G43.90 9 - Consider cochlear Ataxia 66148567 R27.0 [id number] HASEEB BRONSON [place] [facility] [address] [place] [address] 04/05/2023 09:39:10 04/05/2023 09:40:26 Mixed conductive and sensorineural hearing loss, bilateral 597042632 H90.6 Referred otalgia 2079548 8 H92.09 H92.01 Dysfunctio n of eustachian tube 28755663 H69.93 Dizziness 304904740 R42 [id number] HAL MIRANDA MD [place] [facility] [address] [place] [address] 05/30/2023 15:38:08 06/01/2023 17:57:45 Ataxia 76606201 R27.0 Dizziness 418367909 R42 - Consider hydrops or Meniere's. Nausea 265635542 R11.0 Migraine 03876264 G43.90 9 - Consider cochlear Dysfunctio n of bilateral eustachian tubes 6709639763 267141 H69.93 Mixed cond uctive and sensorineural hearing loss, bilateral 416073417 H90.6 History of concussion injury of brain 1331962346 6796515 Z87.820 [id number] HAL MIRANDA MD SURGERY SCHEDULE [address] [place] [address] 06/13/2023 07:38:56 06/13/2023 07:40:21 [id number] HAL MIRANDA MD [place] [facility] [address] [place] [address] 07/07/2023 12:39:45 07/07/2023 14:36:51 Ataxia 88361364 R27.0 Dizziness 442703043 R42 - Consider hydrops or Meniere's. Nausea 665990950 R11.0 Migraine 07435889 G43.90 9 - Consider cochlear Dysfunctio n of bilateral eustachian tubes 4739008063 943473 H69.93 06/13/23- BMT (RUBES) AND BILATERAL EUSTACHIAN TUBOPLASTY W/ BALLOON DILATION (JUSTINO)- bilateral ear tubes present, left tube plugged with cerumen Mixed cond uctive and sensorineural hearing loss, bilateral 571398539 H90.6 History of concussion injury of brain 5542785640 5832183 Z87.820 Health Concerns Section Related Observation LastModified by Organization Detai ls LastModified Time None Recorded Concern Status LastModified by Organization Details LastModified Time None Recorded Advance Directives Directive None Recorded Payers Insurance Date Sequence Insurance Name Policy Number Policy Marcial Covered Member ID Marcial Member ID Guarantor Name 07/14/2023 1 [place] [facility] [employer] OF [facility] [employer] PLUS (MEDICARE REPLACEMENT HMO) [id number] Libertad Julian Gene [id number] Libertad Gene Notes Date Note Type Note Provider Name and Address Organization Details Recorded Time 04/05/2023 text/html Libertad is a 67 year old female who comes in today for an evaluation of her ears. Libertad states that she was diagnosed with vertigo two years ago. Recently, she complains of dizziness that causes her nausea and typically lasts around 15 minutes. She describes the dizziness as feeling head over heels. It is typically worse in the morning when she wakes up. She will have to treat her symptoms by laying in the dark in bed. Her ENT in [place], Dr. Connell, ended up putting a tube in her left ear which he took out in January. Her hearing has been worse in the past couple of months, especially in her left ear. Libertad does have a history of several concussions. She complains of ear pressure changes with the weather. HAL MIRANDA MD [address] [place], [address], [facility] 04/06/2023 14:42:29 05/30/2023 text/html Libertad is a 67 year old female who visits us in office today to follow up on dizziness. She is accompanied by her sister today. Libertad states that everyday this past week she has been dizzy and nauseous and this is the worst that her dizziness has been.. She had an MRI of her brain performed on 05/04/2023 which showed: No acute intracranial process. A couple subcentimeter foci of T2 hyperintensity involving the pontine white matter. These may relate to either chronic small vessel ischemia or demyelination. Bilateral mastoid fluid. HAL MIRANDA MD [address] [place], [address], [facility] 05/30/2023 17:17:12 07/07/2023 text/html Libertad presents in office today to follow up on s/p BMT (RUBE) AND BILATERAL ETBD, performed 06/29/23. She does note having popping and tinnitus. She remains dizzy as well. She is effected with stairs, work, and coordination. She does feel disorientated. She cannot roll over in bed, tie her shoes, or change a light bulb. Some days can be worse than others. She continues to eat sodium and does have hypertensive disorder. HAL MIRANDA MD [address] [place], [address], [facility] 07/07/2023 18:44:57 OBGyn Episode No OBEpisode recorded.
--- NOTE | 2025-03-29 11:03 | ED_ITS ---
Discharge Plan Disposition Patient Disposition: Home, Self-Care Prescriptions Prescriptions: New amoxicillin-pot clavulanate 875-125 mg tablet 1 tab PO BID 7 Days Qty: 14 0RF ciprofloxacin-dexamethasone 0.3-0.1 % drops,suspension 4 drp otic (ear) BID 7 Days Qty: 7.5 0RF Rx Instructions: Apply to left ear as prescribed Referrals Follow up/Referrals: Bhupinder Guzmán APRN [Primary Care Provider, Medical] - See instructions Activity Restrictions/Add. Instructions Additional Instructions/Restrictions: It is likely that you have had an infection or fluid behind your eardrum because the eardrum to bleed. I encourage you to take the antibiotics and drops as prescribed. Follow-up with the md senior research scientist on the as scheduled. If you develop any new or worsening symptoms, or if you become concerned for your health for any reason, return to the emergency department for evaluation. Clinical Impressions Clinical Impression: Otitis media Print Language Print Language: Slovenian Discharge ED Provider: Obed Adame Adult HPI General Chief complaint: Ear Stated complaint: left ear pain, bleeding Time Seen by Provider: 03/29/25 10:49 Mode of Arrival: Ambulatory Source of Information: Patient Description of Symptoms (Recalled from ER Triage Doc. by RN): Pt presents with c/o left ear pain. Pt states she woke up this AM with left ear pain and said her hearing is muffled. Bloody drainage noted to patient's ear. Pt states she has an ENT appointment on Apr 10, and recently completed a her prescribed antibiotics for an ear infection. She had ear tubes placed in May 2023 History of Present Illness HPI narrative: Libertad Mills is a 69-year-old female status post bilateral ear tube placement 1.5 years ago who presents to the emergency department for complaints of bleeding from her left ear. Patient states that 4 months ago, she was diagnosed with a left-sided ear infection was on antibiotics for that. Since that time, she has not had any hearing out of her left ear. She is post to follow-up with ear nose and throat for her first appointment with them on 10 April. She states that she woke up this morning and had bleeding from her left ear. She did not have any direct instrumentation to her left ear prior to this. She denies any fevers. She states that intermittently she would have pains around her left ear down her jaw that resolved after bleeding was present. Related Data Previous Rx's ?Medication ?Instructions ?Recorded amoxicillin 875 mg-potassium 1 tab PO BID 7 days #14 t abs 03/29/25 clavulanate 125 mg tablet ciprofloxacin 0.3 %-dexamethasone 4 drp otic (ear) BID 7 days #7.5 mL 03/29/25 0.1 % ear drops,suspension Allergies Allergy/AdvReac Type Severity Reaction Status Date / Time No Known Allergies Allergy Verified 03/29/25 11:00 [facility] Disclaimer: The information contained in this section may have been updated after the patient was seen, as this information can be updated by other users. Social History Smoking Status: Never smoker alcohol intake: never current occupational status: employed Travel in the last 8 weeks?: None ROS Obtained: Yes Systems reviewed as appropriate & no additional complaints except as documented Physical Exam General General appearance: alert and in no apparent distress Head Head exam: atraumatic Eye Eye exam: Present normal appearance ENT ENT exam: Present normal external ear exam; Absent TM's normal bilaterally (Right tympanic membrane is pearly gonzalez with ear tube in place. Left tympanic membrane is slightly bulging, no ear tube noted, blood behind the tympanic membrane as well as within the external auditory canal.) Neck Neck exam: Present full ROM Chest Chest inspection: Present symmetric chest wall rise Respiratory Respiratory exam: Present normal lung sounds bilaterally; Absent respiratory distress Cardiovascular Cardiovascular exam: Present regular rate and normal rhythm Abdominal Exam Abdominal exam: Present soft Extremities Exam Extremities exam: Present normal inspection Back Exam Back exam: Present normal inspection Neurological Exam Neurological exam: Present alert and oriented X3 Psychiatric Psychiatric exam: Present normal affect Skin Skin exam: Present warm and dry Medical Decision Making Medical Records Screening: Per USPSTF and CDC recommendations, given the prevalence of disease in our region, it is our hospital?s policy to screen for HIV and viral Hepatitis for al l patients aged 18 and over and those with ongoing risk factors. Milo Inquiry Pt receiving controlled substance: No Vital Signs: 03/29/25 10:46 Temperature 98.5 F Temperature Source Oral Pulse Rate [Right] 76 Respiratory Rate 18 Blood Pressure [Right Arm] 185/80 H Blood Pressure Mean [Right Arm] 115 Blood Pressure Source [Right Arm] Automatic Cuff Blood Pressure Position [Right Arm] Sitting 02 Sat by Pulse Oximetry 99 Oxygen Delivery Method Room Air Medical Decision Narrative: Libertad Mills is a 69-year-old female status post bilateral ear tube placement 1.5 years ago who presents to the emergency department for complaints of bleeding from her left ear. Patient states that 4 months ago, she was diagnosed with a left-sided ear infection was on antibiotics for that. Since that time, she has not had any hearing out of her left ear. She is post to follow-up with ear nose and throat for her first appointment with them on 10 April. She states that she woke up this morning and had bleeding from her left ear. She did not have any direct instrumentation to her left ear prior to this. She denies any fevers. She states that intermittently she would have pains around her left ear down her jaw that resolved after bleeding was present. On arrival, patient is hypertensive but otherwise hemodynamically stable. Physical exam shows normal right tympanic membrane with ear tube in place. Left dependent membrane is bulging with blood behind the tympanic membrane. No ear tube is visualized. She does have blood within the external auditory canal as well. Differential diagnosis includes, but is not limited to: Hemorrhagic otitis media, perforated tympanic membrane, otitis externa, dislodged tympanostomy tube. The most morbid conditions were considered and workup was based on these. CT imaging was considered, however have low concern for mastoiditis or malignant otitis externa and is not indicated at this time. Do not feel that laboratory studies would change ED management. I do feel the patient likely had an otitis media that did not resolve as her ear tube does not appear to be in place anymore, causing tympanic membrane perforation, although no definitive perfora tion is noted on my exam. Will prescribe 7 days of Augmentin as well as Ciprodex drops. She already has close follow-up with ear nose and throat and I encouraged her to attend this appointment. Also encouraged her to follow-up with her primary care doctor. Return precautions were given. All questions were answered. She demonstrated understanding and was in agreement this plan. She was then discharged from the emergency department in stable condition. Critical Care Critical Care Time Critical Care Time: No
[2025-03-29 11:31] VITALS: BP 168/96; PULSE 67; RESP 16; TEMP 36.6; O2SAT 97
== END 2025-03-29 11:32 | disposition home or self-care (01) ==
PROVIDERS: Emergency Provider Student in an Organized Health Care Education/Training Program; PCP Nurse Practitioner Family
DX: H66.92 Otitis media, unspecified, left ear (principal)
CPT/HCPCS: 99283